=== PATIENT | female | born 1990 | race Caucasian/White ===

== ENCOUNTER 2017-06-02 21:03 | Emergency (ER) | payer BC, OTHER ==
[2017-06-02] MEDS ORDERED: SODIUM CHLORIDE 0.9% 1,000 ML IV STA (21:49)
[2017-06-02 22:11] LABS: Appearance,Urine Turbid (Clear); Bilirubin,Urine Negative (Negative); Blood,Urine Large (Negative); Color,Urine Dark Red; Glucose,Urine (UA) Trace (Negative); Ketones,Urine Negative (Negative); Leukocyte Esterase,Urine Large (Negative); Nitrite,Urine Negative (Negative); PH, Urine 6.5 (5.0-8.0); Protein,Urine 3+ (Negative); RBC,Urine >182 /hpf (0-5); Squamous Epithelial Cell,Urine 22 /hpf (0-4); Urobilinogen,Urine <2.0 mg/dL (<2.0); WBC,Urine >182 /hpf (0-5)
[2017-06-02 22:16] LABS: Specific Gravity,Urine >1.050 (1.001-1.035)
[2017-06-02 22:22] LABS: Basophils % (A) 0 %; Eosinophils # (A) 0.3 k/uL (0-0.7); Eosinophils % (A) 2 %; HCT 36.1 % (34.0-46.0); HGB 12.1 gm/dL (11.4-16.0); Lymphocytes # (A) 2.7 k/uL (1.0-4.8); Lymphocytes % (A) 20 %; MCHC 33.6 g/dL (31.0-37.0); MCV 89.2 fL (80.0-100.0); Mean Platelet Volume 7.1; Monocytes # (A) 0.5 k/uL (0-1.0); Monocytes % (A) 4 %; Neutrophils # (A) 9.7 k/uL (1.3-7.7); Neutrophils % (A) 73 %; Platelet Count 282 k/uL (150-450); RBC 4.04 m/uL (3.80-5.40); RDW 13.2 % (11.5-15.5); WBC 13.3 k/uL (3.8-10.6)
--- NOTE | 2017-06-02 22:28 | ED ---
General Adult HPI - General Chief complaint: Abdominal Pain Stated complaint: female urogenital Time Seen by Provider: 06/02/17 21:46 Source: patient, RN notes reviewed Mode of arrival: ambulatory Limitations: no limitations - History of Present Illness Initial comments: 27-year-old female presents with 1 day history of periumbilical abdominal pain. Patient denies any nausea or vomiting. Denies any change in her bowels. She does complain of hematuria and dysuria. Denies any vaginal discharge. She is currently on her menstrual cycle began approximately 4 days ago. Denies fever or chills. Denies cough or cold symptoms, denies chest pain or shortness of breath. Pain is constant in nature and localized to the umbilical region. - Related Data Home Medications Medication Instructions Recorded Confirmed Sertraline [Zoloft] 50 mg PO DAILY 06/02/17 06/02/17 Tri-Estarylla 1 tab PO DAILY 06/02/17 06/02/17 lamoTRIgine [LaMICtal Xr] 50 mg PO HS 06/02/17 06/02/17 Previous Rx's Medication Instructions Recorded Cephalexin [Keflex] 500 mg PO Q12HR #30 cap 06/02/17 Allergies Allergy/AdvReac Type Severity Reaction Status Date / Time Sulfa (Sulfonamide AdvReac Confusion Verified 06/02/17 22:33 Antibiotics) Review of Systems ROS Statement: Those systems with pertinent positive or pertinent negative responses have been documented in the HPI. ROS Other: All systems not noted in ROS Statement are negative. Past Medical History Past Medical History: No Reported History Additional Past Medical History / Comment(s): fractured bones chi History of Any Multi-Drug Resistant Organisms: None Reported Past Surgical History: No Surgical Hx Reported Past Psychological History: No Psychological Hx Reported Smoking Status: Never smoker Past Alcohol Use History: None Reported Past Drug Use History: None Reported General Exam Limitations: no limitations General appearance: alert, in no apparent distress Head exam: Present: atraumatic, normocephalic Eye exam: Present: normal appearance, PERRL ENT exam: Present: normal exam Neck exam: Present: normal inspection. Absent: tenderness, meningismus Respiratory exam: Present: normal lung sounds bilaterally. Absent: respiratory distress Cardiovascular Exam: Present: normal rhythm, tachycardia GI/Abdominal exam: Present: soft, distended, tenderness (Tender periumbilical) Extremities exam: Present: normal inspection, normal capillary refill. Absent: pedal edema Neurological exam: Present: alert, oriented X3, CN II-XII intact. Absent: motor sensory deficit Psychiatric exam: Present: normal affect, normal mood Skin exam: Present: warm, dry, intact. Absent: cyanosis, diaphoretic Course Vital Signs 06/02/17 06/02/17 21:14 23:29 Temperature 98.1 F 97.0 F L Pulse Rate 108 H 85 Respiratory 20 15 Rate Blood Pressure 130/65 124/78 O2 Sat by Pulse 99 100 Oximetry Medical Decision Making - Medical Decision Making 27-year-old female presenting with periumbilical pain. Patient does have some lower abdominal pain as well, laboratory studies are obtained, she has a white blood cell count 13.3, CMP within normal limits, urinalysis shows 180 to both RBCs and WBCs, urine culture pending. Patient has no flank pain. No fever, vital signs are stable. HCG is negative. KUB negative for obstruction or intraperitoneal free air, CT is obtained, negative for appendicitis, does show cystitis with wall thickening. Patient is given 1 g of IV Rocephin in the emergency department. She will be started on oral antibiotics. Return with worsening or changing symptoms. - Lab Data Result diagrams: 06/02/17 22:10 06/02/17 22:10 Lab Results 06/02/17 06/02/17 06/02/17 Range/Units 19:43 19:43 22:10 WBC (3.8-10.6) k/uL RBC (3.80-5.40) m/uL Hgb (11.4-16.0) gm/dL Hct (34.0-46.0) % MCV (80.0-100.0) fL MCH (25.0-35.0) pg MCHC (31.0-37.0) g/dL RDW (11.5-15.5) % Plt Count (150-450) k/uL Neutrophils % % Lymphocytes % % Monocytes % % Eosinophils % % Basophils % % Neutrophils # (1.3-7.7) k/uL Lymphocytes # (1.0-4.8) k/uL Monocytes # (0-1.0) k/uL Eosinophils # (0-0.7) k/uL Basophils # (0-0.2) k/uL Sodium 143 (137-145) mmol/L Potassium 4.2 (3.5-5.1) mmol/L Chloride 107 (98-107) mmol/L Carbon Dioxide 25 (22-30) mmol/L Anion Gap 11 mmol/L BUN 12 (7-17) mg/dL Creatinine 0.90 (0.52-1.04) mg/dL Est GFR (CKD-EPI)AfAm >90 (>60 ml/min/1.73 sqM) Est GFR (CKD-EPI)NonAf 90 (>60 ml/min/1.73 sqM) Glucose 91 (74-99) mg/dL Calcium 9.9 (8.4-10.2) mg/dL Total Bilirubin 0.2 (0.2-1.3) mg/dL AST 33 (14-36) U/L ALT 41 (9-52) U/L Alkaline Phosphatase 69 (38-126) U/L Total Protein 7.5 (6.3-8.2) g/dL Albumin 4.3 (3.5-5.0) g/dL Amylase 79 (30-110) U/L Lipase 74 (23-300) U/L Urine Color Dark Red Urine Appearance Turbid H (Clear) Urine pH 6.5 (5.0-8.0) Ur Specific [place] >1.050 H (1.001-1.035) Urine Protein 3+ H (Negative) Urine Glucose (UA) Trace H (Negative) Urine Ketones Negative (Negative) Urine Blood Large H (Negative) Urine Nitrite Negative (Negative) Urine Bilirubin Negative (Negative) Urine Urobilinogen <2.0 (<2.0) mg/dL Ur Leukocyte Esterase Large H (Negative) Urine RBC >182 H (0-5) /hpf Urine WBC >182 H (0-5) /hpf Urine WBC Clumps Many H (None) /hpf Ur Squamous Epith Cells 22 H (0-4) /hpf Urine HCG, Qual Not Detected (Not Detectd) 06/02/17 Range/Units 22:10 WBC 13.3 H (3.8-10.6) k/uL RBC 4.04 (3.80-5.40) m/uL Hgb 12.1 (11.4-16.0) gm/dL Hct 36.1 (34.0-46.0) % MCV 89.2 (80.0-100.0) fL MCH 30.0 (25.0-35.0) pg MCHC 33.6 (31.0-37.0) g/dL RDW 13.2 (11.5-15.5) % Plt Count 282 (150-450) k/uL Neutrophils % 73 % Lymphocytes % 20 % Monocytes % 4 % Eosinophils % 2 % Basophils % 0 % Neutrophils # 9.7 H (1.3-7.7) k/uL Lymphocytes # 2.7 (1.0-4.8) k/uL Monocytes # 0.5 (0-1.0) k/uL Eosinophils # 0.3 (0-0.7) k/uL Basophils # 0.0 (0-0.2) k/uL Sodium (137-145) mmol/L Potassium (3.5-5.1) mmol/L Chloride (98-107) mmol/L Carbon Dioxide (22-30) mmol/L Anion Gap mmol/L BUN (7-17) mg/dL Creatinine (0.52-1.04) mg/dL Est GFR (CKD-EPI)AfAm (>60 ml/min/1.73 sqM) Est GFR (CKD-EPI)NonAf (>60 ml/min/1.73 sqM) Glucose (74-99) mg/dL Calcium (8.4-10.2) mg/dL Total Bilirubin (0.2-1.3) mg/dL AST (14-36) U/L ALT (9-52) U/L Alkaline Phosphatase (38-126) U/L Total Protein (6.3-8.2) g/dL Albumin (3.5-5.0) g/dL Amylase (30-110) U/L Lipase (23-300) U/L Urine Color Urine Appearance (Clear) Urine pH (5.0-8.0) Ur Specific [place] (1.001-1.035) Urine Protein (Negative) Urine Glucose (UA) (Negative) Urine Ketones (Negative) Urine Blood (Negative) Urine Nitrite (Negative) Urine Bilirubin (Negative) Urine Urobilinogen (<2.0) mg/dL Ur Leukocyte Esterase (Negative) Urine RBC (0-5) /hpf Urine WBC (0-5) /hpf Urine WBC Clumps (None) /hpf Ur Squamous Epith Cells (0-4) /hpf Urine HCG, Qual (Not Detectd) Disposition Clinical Impression: Cystitis Disposition: HOME SELF-CARE Condition: Good Instructions: Urinary Tract Infection in Women (ED) Prescriptions: Cephalexin [Keflex] 500 mg PO Q12HR #30 cap Referrals: Mitchell Pink DO [Primary Care Provider] - 1-2 days Time of Disposition: 23:51
[2017-06-02 22:30] LABS: ALT 41 U/L (9-52); AST 33 U/L (14-36); Albumin 4.3 g/dL (3.5-5.0); Alkaline Phosphatase 69 U/L (38-126); Amylase 79 U/L (30-110); Anion Gap 11 mmol/L; Blood Urea Nitrogen 12 mg/dL (7-17); Calcium 9.9 mg/dL (8.4-10.2); Carbon Dioxide 25 mmol/L (22-30); Chloride 107 mmol/L (98-107); Glucose 91 mg/dL (74-99); Lipase 74 U/L (23-300); Potassium 4.2 mmol/L (3.5-5.1); Sodium 143 mmol/L (137-145); Total Bilirubin 0.2 mg/dL (0.2-1.3); Total Protein 7.5 g/dL (6.3-8.2)
[2017-06-02] MEDS ORDERED: RX INFO: IV CONTRAST WAS GIVEN 1 EACH MISC MISCELLANE PRN (22:43)
--- NOTE | 2017-06-02 23:11 | XR ---
EXAMINATION TYPE: XR KUB DATE OF EXAM: 06/02/2017 COMPARISON: 09/26/2014 HISTORY: Abdominal pain TECHNIQUE: 2 views FINDINGS: There is no sign of intestinal obstruction or pneumoperitoneum. Fecal pattern is normal. Coretta ng bases are clear. There are no pathologic calcifications over the kidneys. IMPRESSION: Nonacute abdomen. No change compared to old exam.
--- NOTE | 2017-06-02 23:44 | CT ---
EXAMINATION TYPE: CT abdomen pelvis w con DATE OF EXAM: 06/02/2017 COMPARISON: NONE HISTORY: Lower abd pain CT DLP: 406.60 mGycm Automated exposure control for dose reduction was used. TECHNIQUE: Helical acquisition of images was performed from the lung bases through the pelvis. CONTRAST: Performed without Oral Contrast and with IV Contrast, patient injected with 100 mL of Isovue 300. FINDINGS: Lung bases are clear. There is no pleural effusion. Heart size is normal. Liver spleen pancreas gallbladder appear normal. Bile ducts are not dilated. There is no adrenal mass. Kidneys show satisfactory contrast opacification. There is no hydronephrosi s. There is no retroperitoneal adenopathy. There is no ascites. Bladder distends smoothly. There is s uggestion of some bladder wall thickening. Uterus is anteverted. There is no free fluid in the pelvis . I see no intestinal wall thickening. There are no dilated loops. Appendix appears normal. I see no bony destructive process. Lumbar spine is intact. IMPRESSION: THERE IS URINARY BLADDER WALL THICKENING SUGGESTIVE OF NONSPECIFIC CYSTITIS. NORMAL APPENDIX.
[2017-06-02] MEDS ORDERED: cefTRIAXone IN SWFI 1,000 MG/10 ML SYRINGE IVP STA (23:47)
[2017-06-02 23:58] VITALS: BP 123/60; PULSE 89; RESP 16; TEMP 98.2
== END 2017-06-03 00:12 | disposition home or self-care (01) ==
LOC: EC 21:03
DX: N30.91 Cystitis, unspecified with hematuria (principal); R00.0 Tachycardia, unspecified; Z88.2 Allergy status to sulfonamides; Z79.899 Other long term (current) drug therapy
CPT/HCPCS: 99284 ×2; 96374 ×2; 36415; 80053; 82150; 83690; 85025; 81001; 81025; 87086; 87077; 87186; 74018; 74177; J0696; Q9967

== ENCOUNTER 2017-08-29 17:18 | Emergency (ER) | payer BC, OTHER ==
[2017-08-29 17:37] VITALS: BP 101/57; PULSE 95; RESP 18; TEMP 98.3
[2017-08-29 17:49] LABS: Appearance,Urine Turbid (Clear); Bacteria,Urine Rare /hpf; Bilirubin,Urine Negative (Negative); Blood,Urine Large (Negative); Color,Urine Red; Glucose,Urine (UA) Negative (Negative); Ketones,Urine Negative (Negative); Leukocyte Esterase,Urine Large (Negative); Nitrite,Urine Negative (Negative); Protein,Urine 3+ (Negative); RBC,Urine >182 /hpf (0-5); Squamous Epithelial Cell,Urine 76 /hpf (0-4); Urobilinogen,Urine <2.0 mg/dL (<2.0); WBC,Urine >182 /hpf (0-5)
[2017-08-29 17:50] LABS: Specific Gravity,Urine 1.026 (1.001-1.035)
--- NOTE | 2017-08-29 18:06 | ED ---
Female Urogenital HPI - General Chief complaint: Urogenital Stated complaint: POSS BLADDER INFECTION Time Seen by Provider: 08/29/17 17:26 Source: patient, RN notes reviewed Mode of arrival: ambulatory Limitations: no limitations - History of Present Illness Initial comments: 27-year-old female sent emergency Department chief complaint of pain with urination. Patient states started yesterday. Patient denies any flank pain, fever, chills. Patient states that she's had recurrent urinary tract infections. Patient admits to ALLERGY sulfa products. Patient denies any nausea, vomiting diarrhea constipation. Patient offers no other complaints. Denies any chance . - Related Data Home Medications Medication Instructions Recorded Confirmed Sertraline [Zoloft] 50 mg PO DAILY 06/02/17 06/02/17 Tri-Estarylla 1 tab PO DAILY 06/02/17 06/02/17 lamoTRIgine [LaMICtal Xr] 50 mg PO HS 06/02/17 06/02/17 Previous Rx's Medication Instructions Recorded Cephalexin [Keflex] 500 mg PO Q12HR #30 cap 06/02/17 Ciprofloxacin HCl [Cipro] 500 mg PO Q12HR #14 tablet 08/29/17 Allergies Allergy/AdvReac Type Severity Reaction Status Date / Time Sulfa (Sulfonamide AdvReac Confusion Verified 08/29/17 17:22 Antibiotics) Review of Systems ROS Statement: Those systems with pertinent positive or pertinent negative responses have been documented in the HPI. ROS Other: All systems not noted in ROS Statement are negative. Past Medical History Past Medical History: No Reported History Additional Past Medical History / Comment(s): fractured bones chi History of Any Multi-Drug Resistant Organisms: None Reported Past Surgical History: No Surgical Hx Reported Past Psychological History: No Psychological Hx Reported Smoking Status: Never smoker Past Alcohol Use History: None Reported Past Drug Use History: None Reported General Exam Limitations: no limitations General appearance: alert, in no apparent distress Neck exam: Present: normal inspection. Absent: tenderness, meningismus, lymphadenopathy Respiratory exam: Present: normal lung sounds bilaterally. Absent: respiratory distress, wheezes, rales, rhonchi, stridor Cardiovascular Exam: Present: regular rate, normal rhythm, normal heart sounds. Absent: systolic murmur, diastolic murmur, rubs, gallop, clicks GI/Abdominal exam: Present: soft, tenderness (Minimal suprapubic), normal bowel sounds. Absent: distended, guarding, rebound, rigid Back exam: Absent: CVA tenderness (R), CVA tenderness (L) Skin exam: Present: warm, dry, intact, normal color. Absent: rash Course Vital Signs 08/29/17 17:33 Temperature 98.3 F Pulse Rate 95 Respiratory 18 Rate Blood Pressure 101/57 O2 Sat by Pulse 99 Oximetry Medical Decision Making - Medical Decision Making 27-year-old female presented for dysuria. Patient is found to have a urinary tract infection. Patient has greater than 182 WBCs and RBCs. There is no concern for kidney stone as she has no flank pain and she is in no distress. Patient has no fever. Patient was started on ciprofloxacin and will have close follow-up. - Lab Data Lab Results 08/29/17 Range/Units 17:35 Urine Color Red Urine Appearance Turbid H (Clear) Urine pH 6.0 (5.0-8.0) Ur Specific [place] 1.026 (1.001-1.035) Urine Protein 3+ H (Negative) Urine Glucose (UA) Negative (Negative) Urine Ketones Negative (Negative) Urine Blood Large H (Negative) Urine Nitrite Negative (Negative) Urine Bilirubin Negative (Negative) Urine Urobilinogen <2.0 (<2.0) mg/dL Ur Leukocyte Esterase Large H (Negative) Urine RBC >182 H (0-5) /hpf Urine WBC >182 H (0-5) /hpf Ur Squamous Epith Cells 76 H (0-4) /hpf Urine Bacteria Rare H (None) /hpf Disposition Clinical Impression: Urinary tract infection Disposition: HOME SELF-CARE Condition: Stable Instructions: Urinary Tract Infection in Women (ED) Additional Instructions: Please return to the Emergency Department if symptoms worsen or any other concerns. Prescriptions: Ciprofloxacin HCl [Cipro] 500 mg PO Q12HR #14 tablet Is patient prescribed a controlled substance at d/c from ED?: No Referrals: Mitchell Pink DO [Primary Care Provider] - 1-2 days Time of Disposition: 18:06
== END 2017-08-29 18:15 | disposition home or self-care (01) ==
LOC: EC 17:18
DX: N39.0 Urinary tract infection, site not specified (principal); Z79.3 Long term (current) use of hormonal contraceptives; Z79.899 Other long term (current) drug therapy; Z88.2 Allergy status to sulfonamides
CPT/HCPCS: 81001; 87086; 99283

== ENCOUNTER 2018-01-25 16:57 | Emergency (ER) | payer BC, OTHER ==
--- NOTE | 2018-01-25 18:50 | ED ---
URI HPI - General Chief Complaint: Upper Respiratory Infection Stated Complaint: poss cold, headache Time Seen by Provider: 01/25/18 17:37 Source: patient Mode of arrival: ambulatory Limitations: no limitations - History of Present Illness Initial Comments: The well-appearing 27-year-old female with past medical history of previous head injury presenting today for chief complaint of sore throat, dull aching headache. Patient states that the past few days she has had sore throat that increases with swallowing. She also has noted a dull aching headache that comes and goes, she denies this being the worse headache or knife, denies photophobia, denies neck stiffness. Patient has noted some chills, denies cough , chest pain, sinus pressure, sputum production, shortness of breath, nausea, vomiting, diarrhea, dizziness, neck stiffness, body aches, visual changes, ataxia, speech changes, muscle weakness of the UE/LE, abdominal pain, diplopia , photophobia, ear pain, difficulty swallowing or breathing. Patient denies any neck swelling. Upon arrival pt appears well VS within normal limits. . - Related Data Home Medications Medication Instructions Recorded Confirmed Sertraline [Zoloft] 50 mg PO DAILY 06/02/17 08/29/17 Tri-Estarylla 1 tab PO DAILY 06/02/17 08/29/17 lamoTRIgine [LaMICtal Xr] 50 mg PO HS 06/02/17 08/29/17 Previous Rx's Medication Instructions Recorded Cephalexin [Keflex] 500 mg PO Q12HR #30 cap 06/02/17 Ciprofloxacin HCl [Cipro] 500 mg PO Q12HR #14 tablet 08/29/17 Ibuprofen 800 mg PO Q8H PRN 7 Days #21 tablet 01/25/18 Allergies Allergy/AdvReac Type Severity Reaction Status Date / Time Sulfa (Sulfonamide AdvReac Confusion Verified 01/25/18 17:20 Antibiotics) Review of Systems ROS Statement: Those systems with pertinent positive or pertinent negative responses have been documented in the HPI. ROS Other: All systems not noted in ROS Statement are negative. Constitutional: Denies: fever, chills, night sweats ENT: Reports: throat pain. Denies: ear pain, dental pain Respiratory: Denies: cough, dyspnea, wheezes, hemoptysis, stridor Cardiovascular: Denies: chest pain, palpitations, dyspnea on exertion Endocrine: Denies: fatigue Gastrointestinal: Denies: abdominal pain, nausea, vomiting, diarrhea, constipation, hematemesis, melena, hematochezia Genitourinary: Denies: urgency, dysuria, frequency, hematuria, discharge Skin: Denies: rash, lesions Neurological: Reports: headache. Denies: weakness, numbness, paresthesias, confusion, abnormal gait Past Medical History Past Medical History: No Reported History Additional Past Medical History / Comment(s): fractured bones chi History of Any Multi-Drug Resistant Organisms: None Reported Past Surgical History: No Surgical Hx Reported Past Psychological History: No Psychological Hx Reported Smoking Status: Never smoker Past Alcohol Use History: None Reported Past Drug Use History: None Reported General Exam - General Exam Comments Initial Comments: General: The patient is awake and alert, in no distress, and does not appear acutely ill. Eye: +3 pupils are equal, round and reactive to light, extra-ocular movements are intact. No nystagmus. There is normal conjunctiva bilaterally. No signs of icterus. No evidence of photophobia. Ears, nose, mouth and throat: There are moist mucous membranes and no oral lesions. Pharynx is mildly erythematous, there is mild tonsillar enlargement and erythema, no exudates or crypts. Uvula is midline. There is no evidence of peritonsillar abscess. No anterior cervical adenopathy. Tympanic membranes within normal limits bilaterally, no effusion, erythema retractions or bulging. External auditory canal exam normal bilaterally. Tenderness to palpation the mastoid. No posterior cervical lymph node the or epitrochlear adenopathy. Neck: The neck is supple, there is no tenderness or JVD. Negative Brudzinski's , negative Kernig. No nuchal rigidity. Cardiovascular: There is a regular rate and rhythm. No murmur, rub or gallop is appreciated. Respiratory: Lungs are clear to auscultation, respirations are non-labored, breath sounds are equal. No wheezes, stridor, rales, or rhonchi. Gastrointestinal: Soft, non-distended, non-tender abdomen without masses or organomegaly noted. There is no rebound or guarding present. No splenomegaly. No CVA tenderness. Bowel sounds are unremarkable. Musculoskeletal: Normal ROM, no tenderness. Strength 5/5. Sensation intact. Radial pulses equal bilaterally 2+. Neurological: A&O x 3. CN II-XII intact, There are no obvious motor or sensory deficits. Coordination appears grossly intact. Speech is normal. Skin: Skin is warm and dry and no rashes or lesions are noted. Psychiatric: Cooperative, appropriate mood & affect, normal judgment. Limitations: no limitations Course Vital Signs 01/25/18 17:16 Temperature 97.7 F Pulse Rate 97 Respiratory 18 Rate Blood Pressure 109/61 O2 Sat by Pulse 98 Oximetry Medical Decision Making - Medical Decision Making 27-year-old with complaints of sore throat 2 days. PT revealed mildly edematous oropharynx. Remainder of exam unremarkable. Lung sounds clear. No meningismus, photophobia. Patient appears well and nontoxic. Influenza and rapid strep testing negative. Patient was given 8 mg of by mouth for symptomatic treatment as well as tylenol for headache. Pt states that [place] has been improving since beginning of visit. VS stable, pt afebrile. No signs of symptoms concerning for systemic infection. At this time I feel pt has viral pharyngitis. Pt it to do salt water gargles, take ibuprofen/tylenol for pain mgmt. Return parameters discussed at length including worsening headache, nausea , vomiting, difficult to breathing or swallowing in addition to any worsening or concerning symptoms. Patient is agreeable with plan, states she is ready for discharge. Case was discussed with Dr. Maloney Who agrees with impression and plan. Patient was discharged in stable condition. - Lab Data Lab Results 01/25/18 01/25/18 Range/Units 17:49 17:49 Influenza Type A RNA Not Detected (Not Detectd) Influenza Type B (PCR) Not Detected (Not Detectd) Group A Strep Rapid Negative (Negative) Disposition Clinical Impression: Upper respiratory infection, Pharyngitis Disposition: HOME SELF-CARE Condition: Good Instructions: Pharyngitis (ED), Upper Respiratory Infection (ED) Additional Instructions: Please use medication as discussed. Please follow-up with family doctor in the next 2 days. Please return to emergency room if the symptoms increase or worsen or for any other concerns. Prescriptions: Ibuprofen 800 mg PO Q8H PRN 7 Days #21 tablet PRN Reason: Pain Is patient prescribed a controlled substance at d/c from ED?: No Referrals: Mitchell Pink DO [Primary Care Provider] - 1-2 days Time of Disposition: 18:51
[2018-01-25] MEDS ORDERED: ACETAMINOPHEN TAB 500 MG TAB PO STA (18:51)
[2018-01-25] MEDS ORDERED: DEXAMETHASONE 4 MG TAB PO STA (18:51)
[2018-01-25 19:14] VITALS: BP 109/80; PULSE 72; RESP 20; TEMP 97.9
== END 2018-01-25 19:13 | disposition home or self-care (01) ==
LOC: EC 16:57
DX: J02.9 Acute pharyngitis, unspecified (principal); R51 Headache; Z79.899 Other long term (current) drug therapy; Z79.3 Long term (current) use of hormonal contraceptives; Z88.2 Allergy status to sulfonamides
CPT/HCPCS: 87081; 87430; 87502; 99284; J8540

== ENCOUNTER 2018-03-04 22:13 | Emergency (ER) | payer BC, OTHER ==
[2018-03-04 22:17] VITALS: BP 118/78; PULSE 77; RESP 18; TEMP 97.6
[2018-03-04] MEDS ORDERED: FAMOTIDINE 20 MG TAB PO STA (22:45)
[2018-03-04] MEDS ORDERED: ONDANSETRON 4 MG TAB PO STA (22:45)
[2018-03-04] MEDS ORDERED: ONDANSETRON 4 MG ODT STARTER PACK 2 TAB BTL PO STA (22:45)
--- NOTE | 2018-03-04 22:50 | ED ---
Nausea/Vomiting/Diarrhea HPI - General Chief complaint: Nausea/Vomiting/Diarrhea Stated complaint: Nausea Time Seen by Provider: 03/04/18 22:28 Source: patient, RN notes reviewed, old records reviewed Mode of arrival: ambulatory Limitations: no limitations - History of Present Illness Initial comments: Patient is a 27-year-old female who presents raise times a day with chief complaint of nausea. Patient reports over the past 2 days she only has nausea in the evening. She states it goes away when she spells sleep. She denies chance . She went to her PCPs office and they checked a urinalysis and urine hCG. This is all negative. She's had no vomiting episodes. She denies any abdominal pain. She only complains of nausea. She was given a prescription for Zofran but cannot get this filled until tomorrow. - Related Data Home Medications Medication Instructions Recorded Confirmed Sertraline [Zoloft] 50 mg PO DAILY 06/02/17 03/04/18 lamoTRIgine [LaMICtal Xr] 50 mg PO HS 06/02/17 03/04/18 Control (Unknown) 1 tab PO DAILY 03/04/18 03/04/18 Previous Rx's Medication Instructions Recorded Ondansetron Odt [Zofran Odt] 4 mg PO Q8HR PRN #12 tab 03/04/18 Allergies Allergy/AdvReac Type Severity Reaction Status Date / Time Sulfa (Sulfonamide AdvReac Confusion Verified 03/04/18 22:38 Antibiotics) Review of Systems ROS Statement: Those systems with pertinent positive or pertinent negative responses have been documented in the HPI. ROS Other: All systems not noted in ROS Statement are negative. Past Medical History Past Medical History: No Reported History Additional Past Medical History / Comment(s): fractured bones chi History of Any Multi-Drug Resistant Organisms: None Reported Past Surgical History: No Surgical Hx Reported Past Psychological History: No Psychological Hx Reported Smoking Status: Never smoker Past Alcohol Use History: None Reported Past Drug Use History: None Reported General Exam - General Exam Comments Initial Comments: Alert and oriented 27-year-old male. No acute distress. Limitations: no limitations General appearance: alert, in no apparent distress Head exam: Present: atraumatic, normocephalic, normal inspection Eye exam: Present: normal appearance, PERRL, EOMI. Absent: scleral icterus, conjunctival injection, periorbital swelling ENT exam: Present: normal exam, mucous membranes moist Neck exam: Present: normal inspection. Absent: tenderness, meningismus, lymphadenopathy Respiratory exam: Present: normal lung sounds bilaterally. Absent: respiratory distress, wheezes, rales, rhonchi, stridor Cardiovascular Exam: Present: regular rate, normal rhythm, normal heart sounds. Absent: systolic murmur, diastolic murmur, rubs, gallop, clicks GI/Abdominal exam: Present: soft, normal bowel sounds. Absent: distended, tenderness, guarding, rebound, rigid Extremities exam: Present: normal inspection, full ROM, normal capillary refill. Absent: tenderness, pedal edema, joint swelling, calf tenderness Back exam: Present: normal inspection Neurological exam: Present: alert, oriented X3, CN II-XII intact Psychiatric exam: Present: normal affect, normal mood Course Vital Signs 03/04/18 22:14 Temperature 97.6 F Pulse Rate 77 Respiratory 18 Rate Blood Pressure 118/78 O2 Sat by Pulse 99 Oximetry Medical Decision Making - Medical Decision Making 27-year-old female presents emergency department today with chief complaint of nausea. Patient has no abdominal pain. She has no other complaints. No fevers or chills. Abdomen is soft and nontender. Vital signs are stable. Patient has had no actual vomiting episodes. Patient was seen by PCP, urine hCG and urinalysis is negative today. Patient requests a dose of Zofran and she is speaking prescription prescription tomorrow. I discussed the Patient a Zofran starter pack and one dose here as well as some Pepcid help settle her stomach. I discussed that she can follow-up with her primary care physician. Discussed if she has any actual abdominal pain fevers or chills or symptoms she can return for reevaluation. Disposition Clinical Impression: Nausea Disposition: HOME SELF-CARE Condition: Good Instructions: Acute Nausea and Vomiting (ED) Additional Instructions: Patient denies follow-up with primary care physician. Return to emergency department if any alarming signs or symptoms occur. Prescriptions: Ondansetron Odt [Zofran Odt] 4 mg PO Q8HR PRN #12 tab PRN Reason: Nausea Is patient prescribed a controlled substance at d/c from ED?: No Referrals: Mitchell Pink DO [Primary Care Provider] - 1-2 days Time of Disposition: 22:49
== END 2018-03-04 23:00 | disposition home or self-care (01) ==
LOC: EC 22:13
DX: R11.0 Nausea (principal); Z32.02 Encounter for pregnancy test, result negative; Z88.2 Allergy status to sulfonamides; Z79.3 Long term (current) use of hormonal contraceptives; Z79.899 Other long term (current) drug therapy
CPT/HCPCS: 99283; S0119

== ENCOUNTER 2018-05-11 23:39 | Emergency (ER) | payer BC, OTHER ==
[2018-05-12 03:19] LABS: Appearance,Urine Clear (Clear); Bacteria,Urine Occasional /hpf; Bilirubin,Urine Negative (Negative); Blood,Urine Negative (Negative); Color,Urine Light Yellow; Glucose,Urine (UA) Negative (Negative); Ketones,Urine Negative (Negative); Leukocyte Esterase,Urine Moderate (Negative); Mucus,Urine Rare /hpf; Nitrite,Urine Negative (Negative); PH, Urine 6.5 (5.0-8.0); Protein,Urine Negative (Negative); RBC,Urine 1 /hpf (0-5); Specific Gravity,Urine 1.013 (1.001-1.035); Squamous Epithelial Cell,Urine 2 /hpf (0-4); Urobilinogen,Urine <2.0 mg/dL (<2.0)
--- NOTE | 2018-05-12 03:30 | ED ---
General Adult HPI - General Chief complaint: Nausea/Vomiting/Diarrhea Stated complaint: Sore Throat/Tired Time Seen by Provider: 05/12/18 02:54 Source: patient Mode of arrival: ambulatory Limitations: no limitations - History of Present Illness Initial comments: Ya alvarenga pleasant 28-year-old female is brought to the ED today with her mother for evaluation of sore throat, subjective fever, chills and generalized body aches. Patient reports she's not been feeling well for couple of days. Patient reports she has had a sore throat and mild headache, nausea, decreased appetite, subjective fevers and chills, she reports that for the past day she's felt very cold and like she can't get warm. She was noted to be wearing 2 jackets upon arrival. - Related Data Home Medications Medication Instructions Recorded Confirmed Sertraline [Zoloft] 50 mg PO DAILY 06/02/17 03/04/18 lamoTRIgine [LaMICtal Xr] 50 mg PO HS 06/02/17 03/04/18 Control (Unknown) 1 tab PO DAILY 03/04/18 03/04/18 Previous Rx's Medication Instructions Recorded Ondansetron Odt [Zofran Odt] 4 mg PO Q8HR PRN #12 tab 03/04/18 Allergies Allergy/AdvReac Type Severity Reaction Status Date / Time Sulfa (Sulfonamide AdvReac Confusion Verified 05/12/18 00:19 Antibiotics) Review of Systems ROS Statement: Those systems with pertinent positive or pertinent negative responses have been documented in the HPI. ROS Other: All systems not noted in ROS Statement are negative. Past Medical History Past Medical History: No Reported History Additional Past Medical History / Comment(s): fractured bones chi History of Any Multi-Drug Resistant Organisms: None Reported Past Surgical History: No Surgical Hx Reported Past Psychological History: No Psychological Hx Reported Smoking Status: Never smoker Past Alcohol Use History: None Reported Past Drug Use History: None Reported General Exam - General Exam Comments Initial Comments: Physical Exam GENERAL: Patient is well-developed and well-nourished. Patient is febrile pierced mildly dehydrated HENT: Normocephalic, Atraumatic. Posterior oropharynx is injected EYES: PERRL, EOMI PULMONARY: Unlabored respirations. CARDIOVASCULAR: RRR ABDOMEN: Soft and nontender with normal bowel sounds. SKIN: Skin is clear with no lesions or rashes and otherwise unremarkable. Warm to touch, no rash : Deferred NEUROLOGIC: Patient is alert and oriented x3. Moving all extremities spontaneously MUSCULOSKELETAL: Normal extremities with adequate strength and full range of motion. No lower extremity swelling or edema. No calf tenderness. PSYCHIATRIC: Normal psychiatric evaluation. Limitations: no limitations Limitations: no limitations Course Vital Signs 05/12/18 05/12/18 05/12/18 00:15 04:07 05:54 Temperature 99.9 F H 101.7 F H 99.2 F Pulse Rate 90 71 Respiratory 16 18 Rate Blood Pressure 125/58 121/84 O2 Sat by Pulse 100 98 Oximetry Medical Decision Making - Medical Decision Making The patient was seen and evaluated history was obtained from patient and mother Patient with viral-like illness, however throat is injected with some mild exudate therefore strep swab was obtained Who swab as well as heterophile test were obtained, CBC and BMP were obtained patient was given Motrin for fever and IV fluids for rehydration Influenza heterophile and strep were negative I suspect the patient is suffering from viral pharyngitis. Patient was treated with Decadron. The importance of oral rehydration therapy was discussed with the patient, all questions pertaining care were answered patient was discharged home in stable condition. At the time of discharge patient's heart rate and fever had improved she reported feeling much better. - Lab Data Result diagrams: 05/12/18 03:49 05/12/18 03:49 Lab Results 05/12/18 05/12/18 05/12/18 Range/Units 03:05 03:05 03:49 WBC (3.8-10.6) k/uL RBC (3.80-5.40) m/uL Hgb (11.4-16.0) gm/dL Hct (34.0-46.0) % MCV (80.0-100.0) fL MCH (25.0-35.0) pg MCHC (31.0-37.0) g/dL RDW (11.5-15.5) % Plt Count (150-450) k/uL Neutrophils % % Lymphocytes % % Monocytes % % Eosinophils % % Basophils % % Neutrophils # (1.3-7.7) k/uL Lymphocytes # (1.0-4.8) k/uL Monocytes # (0-1.0) k/uL Eosinophils # (0-0.7) k/uL Basophils # (0-0.2) k/uL Sodium (137-145) mmol/L Potassium (3.5-5.1) mmol/L Chloride (98-107) mmol/L Carbon Dioxide (22-30) mmol/L Anion Gap mmol/L BUN (7-17) mg/dL Creatinine (0.52-1.04) mg/dL Est GFR (CKD-EPI)AfAm (>60 ml/min/1.73 sqM) Est GFR (CKD-EPI)NonAf (>60 ml/min/1.73 sqM) Glucose (74-99) mg/dL Calcium (8.4-10.2) mg/dL Total Bilirubin (0.2-1.3) mg/dL AST (14-36) U/L ALT (9-52) U/L Alkaline Phosphatase (38-126) U/L Total Protein (6.3-8.2) g/dL Albumin (3.5-5.0) g/dL Urine Color Light Yellow Urine Appearance Clear (Clear) Urine pH 6.5 (5.0-8.0) Ur Specific [place] 1.013 (1.001-1.035) Urine Protein Negative (Negative) Urine Glucose (UA) Negative (Negative) Urine Ketones Negative (Negative) Urine Blood Negative (Negative) Urine Nitrite Negative (Negative) Urine Bilirubin Negative (Negative) Urine Urobilinogen <2.0 (<2.0) mg/dL Ur Leukocyte Esterase Moderate H (Negative) Urine RBC 1 (0-5) /hpf Urine WBC 4 (0-5) /hpf Ur Squamous Epith Cells 2 (0-4) /hpf Urine Bacteria Occasional H (None) /hpf Urine Mucus Rare H (None) /hpf Urine HCG, Qual Not Detected (Not Detectd) Heterophile Antibody (Negative) Influenza Type A RNA Not Detected (Not Detectd) Influenza Type B (PCR) Not Detected (Not Detectd) Group A Strep Rapid (Negative) 05/12/18 05/12/18 05/12/18 Range/Units 03:49 03:49 03:49 WBC 13.1 H (3.8-10.6) k/uL RBC 4.04 (3.80-5.40) m/uL Hgb 11.8 (11.4-16.0) gm/dL Hct 35.6 (34.0-46.0) % MCV 88.2 (80.0-100.0) fL MCH 29.2 (25.0-35.0) pg MCHC 33.2 (31.0-37.0) g/dL RDW 13.7 (11.5-15.5) % Plt Count 248 (150-450) k/uL Neutrophils % 88 % Lymphocytes % 6 % Monocytes % 3 % Eosinophils % 2 % Basophils % 0 % Neutrophils # 11.5 H (1.3-7.7) k/uL Lymphocytes # 0.9 L (1.0-4.8) k/uL Monocytes # 0.3 (0-1.0) k/uL Eosinophils # 0.3 (0-0.7) k/uL Basophils # 0.0 (0-0.2) k/uL Sodium 138 (137-145) mmol/L Potassium 4.2 (3.5-5.1) mmol/L Chloride 106 (98-107) mmol/L Carbon Dioxide 21 L (22-30) mmol/L Anion Gap 11 mmol/L BUN 11 (7-17) mg/dL Creatinine 0.85 (0.52-1.04) mg/dL Est GFR (CKD-EPI)AfAm >90 (>60 ml/min/1.73 sqM) Est GFR (CKD-EPI)NonAf >90 (>60 ml/min/1.73 sqM) Glucose 116 H (74-99) mg/dL Calcium 9.4 (8.4-10.2) mg/dL Total Bilirubin 0.4 (0.2-1.3) mg/dL AST 22 (14-36) U/L ALT 20 (9-52) U/L Alkaline Phosphatase 69 (38-126) U/L Total Protein 7.7 (6.3-8.2) g/dL Albumin 4.2 (3.5-5.0) g/dL Urine Color Urine Appearance (Clear) Urine pH (5.0-8.0) Ur Specific [place] (1.001-1.035) Urine Protein (Negative) Urine Glucose (UA) (Negative) Urine Ketones (Negative) Urine Blood (Negative) Urine Nitrite (Negative) Urine Bilirubin (Negative) Urine Urobilinogen (<2.0) mg/dL Ur Leukocyte Esterase (Negative) Urine RBC (0-5) /hpf Urine WBC (0-5) /hpf Ur Squamous Epith Cells (0-4) /hpf Urine Bacteria (None) /hpf Urine Mucus (None) /hpf Urine HCG, Qual (Not Detectd) Heterophile Antibody Negative (Negative) Influenza Type A RNA (Not Detectd) Influenza Type B (PCR) (Not Detectd) Group A Strep Rapid (Negative) 05/12/18 Range/Units 03:49 WBC (3.8-10.6) k/uL RBC (3.80-5.40) m/uL Hgb (11.4-16.0) gm/dL Hct (34.0-46.0) % MCV (80.0-100.0) fL MCH (25.0-35.0) pg MCHC (31.0-37.0) g/dL RDW (11.5-15.5) % Plt Count (150-450) k/uL Neutrophils % % Lymphocytes % % Monocytes % % Eosinophils % % Basophils % % Neutrophils # (1.3-7.7) k/uL Lymphocytes # (1.0-4.8) k/uL Monocytes # (0-1.0) k/uL Eosinophils # (0-0.7) k/uL Basophils # (0-0.2) k/uL Sodium (137-145) mmol/L Potassium (3.5-5.1) mmol/L Chloride (98-107) mmol/L Carbon Dioxide (22-30) mmol/L Anion Gap mmol/L BUN (7-17) mg/dL Creatinine (0.52-1.04) mg/dL Est GFR (CKD-EPI)AfAm (>60 ml/min/1.73 sqM) Est GFR (CKD-EPI)NonAf (>60 ml/min/1.73 sqM) Glucose (74-99) mg/dL Calcium (8.4-10.2) mg/dL Total Bilirubin (0.2-1.3) mg/dL AST (14-36) U/L ALT (9-52) U/L Alkaline Phosphatase (38-126) U/L Total Protein (6.3-8.2) g/dL Albumin (3.5-5.0) g/dL Urine Color Urine Appearance (Clear) Urine pH (5.0-8.0) Ur Specific [place] (1.001-1.035) Urine Protein (Negative) Urine Glucose (UA) (Negative) Urine Ketones (Negative) Urine Blood (Negative) Urine Nitrite (Negative) Urine Bilirubin (Negative) Urine Urobilinogen (<2.0) mg/dL Ur Leukocyte Esterase (Negative) Urine RBC (0-5) /hpf Urine WBC (0-5) /hpf Ur Squamous Epith Cells (0-4) /hpf Urine Bacteria (None) /hpf Urine Mucus (None) /hpf Urine HCG, Qual (Not Detectd) Heterophile Antibody (Negative) Influenza Type A RNA (Not Detectd) Influenza Type B (PCR) (Not Detectd) Group A Strep Rapid Negative (Negative) Disposition Clinical Impression: Viral pharyngitis Disposition: HOME SELF-CARE Condition: Good Instructions (If sedation given, give patient instructions): Pharyngitis (ED) Is patient prescribed a controlled substance at d/c from ED?: No Referrals: Mitchell Pink DO [Primary Care Provider] - 1-2 days
[2018-05-12] MEDS ORDERED: SODIUM CHLORIDE 0.9% 1,000 ML IV ONE (03:41)
[2018-05-12] MEDS ORDERED: IBUPROFEN 600 MG TAB PO STA (03:41)
[2018-05-12 04:17] LABS: Basophils % (A) 0 %; Eosinophils # (A) 0.3 k/uL (0-0.7); Eosinophils % (A) 2 %; HCT 35.6 % (34.0-46.0); HGB 11.8 gm/dL (11.4-16.0); Lymphocytes # (A) 0.9 k/uL (1.0-4.8); Lymphocytes % (A) 6 %; MCH 29.2 pg (25.0-35.0); MCHC 33.2 g/dL (31.0-37.0); MCV 88.2 fL (80.0-100.0); Mean Platelet Volume 7.4; Monocytes # (A) 0.3 k/uL (0-1.0); Monocytes % (A) 3 %; Neutrophils # (A) 11.5 k/uL (1.3-7.7); Neutrophils % (A) 88 %; Platelet Count 248 k/uL (150-450); RBC 4.04 m/uL (3.80-5.40); RDW 13.7 % (11.5-15.5); WBC 13.1 k/uL (3.8-10.6)
[2018-05-12 04:27] LABS: ALT 20 U/L (9-52); AST 22 U/L (14-36); Albumin 4.2 g/dL (3.5-5.0); Alkaline Phosphatase 69 U/L (38-126); Anion Gap 11 mmol/L; Blood Urea Nitrogen 11 mg/dL (7-17); Calcium 9.4 mg/dL (8.4-10.2); Carbon Dioxide 21 mmol/L (22-30); Chloride 106 mmol/L (98-107); Glucose 116 mg/dL (74-99); Potassium 4.2 mmol/L (3.5-5.1); Sodium 138 mmol/L (137-145); Total Bilirubin 0.4 mg/dL (0.2-1.3); Total Protein 7.7 g/dL (6.3-8.2)
[2018-05-12] MEDS ORDERED: DEXAMETHASONE SOD PHOSPHATE 10 MG/ML 1 ML VIAL IV STA (05:09)
[2018-05-12 05:55] VITALS: BP 121/84; PULSE 71; RESP 18; TEMP 99.2
== END 2018-05-12 05:55 | disposition home or self-care (01) ==
LOC: EC 23:39
DX: J02.8 Acute pharyngitis due to other specified organisms (principal); R11.2 Nausea with vomiting, unspecified; R19.7 Diarrhea, unspecified; Z79.899 Other long term (current) drug therapy; Z79.3 Long term (current) use of hormonal contraceptives; Z88.2 Allergy status to sulfonamides
CPT/HCPCS: 36415; 80053; 81001; 81025; 85025; 86308; 87081; 87430; 87502; 96361; 96374; 99283

== ENCOUNTER 2018-05-22 01:27 | Emergency (ER) | payer BC, OTHER ==
[2018-05-22 01:44] VITALS: TEMP 97.9
[2018-05-22 02:46] LABS: Appearance,Urine Cloudy (Clear); Bacteria,Urine Many /hpf; Bilirubin,Urine Negative (Negative); Blood,Urine Negative (Negative); Color,Urine Yellow; Glucose,Urine (UA) Negative (Negative); Ketones,Urine Negative (Negative); Leukocyte Esterase,Urine Large (Negative); Mucus,Urine Many /hpf; Nitrite,Urine Negative (Negative); Protein,Urine 1+ (Negative); RBC,Urine 9 /hpf (0-5); Specific Gravity,Urine 1.029 (1.001-1.035); Squamous Epithelial Cell,Urine 41 /hpf (0-4); WBC,Urine 38 /hpf (0-5)
--- NOTE | 2018-05-22 04:08 | XR ---
EXAM: XR Abdomen, 2 Views CLINICAL HISTORY: Generalized abdominal pain. TECHNIQUE: Frontal supine views of the abdomen/pelvis. COMPARISON: 06/02/2017. FINDINGS: Gastrointestinal tract: Unremarkable. No dilation. Bones/joints: Unremarkable. IMPRESSION: Nonacute abdomen. No significant interval change from prior study.
[2018-05-22] MEDS ORDERED: ONDANSETRON 4 MG ODT STARTER PACK 2 TAB BTL PO STA (04:19)
--- NOTE | 2018-05-22 04:19 | ED ---
Abdominal Pain HPI - General Chief Complaint: Abdominal Pain Stated Complaint: Abdominal Pain Time Seen by Provider: 05/22/18 01:57 Source: patient Mode of arrival: ambulatory Limitations: no limitations - History of Present Illness Initial Comments: 28 year-old female patient presents to the emergency department today for evaluation of abdominal discomfort, nausea, and back pain. Patient states that symptoms started a few hours ago. Patient states she has been taking antibiotic for upper respiratory infection and believes this may be the cause of her symptoms. She denies any vomiting, constipation, or diarrhea. She denies any fevers or chills with this. States that she has been having some dysuria. Patient denies any recent rash, fever, chills, shortness breath, chest pain, numbness, tingling, dizziness, weakness, hematuria, headache, visual changes, or any other complaints. - Related Data Home Medications Medication Instructions Recorded Confirmed Sertraline [Zoloft] 50 mg PO DAILY 06/02/17 05/22/18 lamoTRIgine [LaMICtal Xr] 50 mg PO HS 06/02/17 05/22/18 Control (Unknown) 1 tab PO DAILY 03/04/18 05/22/18 Amoxicillin 12.5 ml PO 05/22/18 Previous Rx's Medication Instructions Recorded Ondansetron Odt [Zofran Odt] 4 mg PO Q8HR PRN #12 tab 03/04/18 Cephalexin [Keflex Susp] 10 ml PO Q6H #400 ml 05/22/18 Allergies Allergy/AdvReac Type Severity Reaction Status Date / Time Sulfa (Sulfonamide AdvReac Confusion Verified 05/12/18 00:19 Antibiotics) Review of Systems ROS Statement: Those systems with pertinent positive or pertinent negative responses have been documented in the HPI. ROS Other: All systems not noted in ROS Statement are negative. Past Medical History Past Medical History: No Reported History Additional Past Medical History / Comment(s): fractured bones chi History of Any Multi-Drug Resistant Organisms: None Reported Past Surgical History: No Surgical Hx Reported Past Psychological History: No Psychological Hx Reported Smoking Status: Never smoker Past Alcohol Use History: None Reported Past Drug Use History: None Reported General Exam Limitations: no limitations General appearance: alert, in no apparent distress, other (Social well- developed, well-nourished adult female patient in no acute distress. Vital signs upon presentation are temperature 97.9F, pulse 96, respirations 20, blood pressure 117/77, pulse ox 99% on room air.) Eye exam: Present: normal appearance, PERRL, EOMI. Absent: scleral icterus, conjunctival injection, periorbital swelling ENT exam: Present: normal exam, normal oropharynx, mucous membranes moist Respiratory exam: Present: normal lung sounds bilaterally. Absent: respiratory distress, wheezes, rales, rhonchi, stridor Cardiovascular Exam: Present: regular rate, normal rhythm, normal heart sounds. Absent: systolic murmur, diastolic murmur, rubs, gallop, clicks GI/Abdominal exam: Present: soft, normal bowel sounds. Absent: distended, tenderness, guarding, rebound, rigid Back exam: Present: normal inspection, CVA tenderness (R) (Mild), CVA tenderness (L) (Mild) Neurological exam: Present: alert, oriented X3, CN II-XII intact Psychiatric exam: Present: normal affect, normal mood Skin exam: Present: warm, dry, intact, normal color. Absent: rash Course Vital Signs 05/22/18 05/22/18 01:40 05:26 Temperature 97.9 F Pulse Rate 96 70 Respiratory 20 16 Rate Blood Pressure 117/77 102/45 O2 Sat by Pulse 99 Oximetry Medical Decision Making - Medical Decision Making 28 year-old female patient presented to the emergency department today for ev aluation of abdominal discomfort and back pain. Physical examination revealed a soft nontender abdomen. Mild CVA tenderness. KUB x-ray was obtained and showed no acute abnormalities. Urinalysis was obtained and did show evidence for urinary tract infection. She will be switched to Keflex. She is instructed to monitor for development of fevers or vomiting. She is instructed to return immediately should these develop. She is instructed to follow-up with her primary care physician for recheck in 1-2 days. Return parameters discussed in detail patient verbalizes understanding and agrees with this plan. - Lab Data Lab Results 05/22/18 05/22/18 Range/Units 02:25 02:25 Urine Color Yellow Urine Appearance Cloudy H (Clear) Urine pH 6.0 (5.0-8.0) Ur Specific [place] 1.029 (1.001-1.035) Urine Protein 1+ H (Negative) Urine Glucose (UA) Negative (Negative) Urine Ketones Negative (Negative) Urine Blood Negative (Negative) Urine Nitrite Negative (Negative) Urine Bilirubin Negative (Negative) Urine Urobilinogen 2.0 (<2.0) mg/dL Ur Leukocyte Esterase Large H (Negative) Urine RBC 9 H (0-5) /hpf Urine WBC 38 H (0-5) /hpf Ur Squamous Epith Cells 41 H (0-4) /hpf Urine Bacteria Many H (None) /hpf Urine Mucus Many H (None) /hpf Urine HCG, Qual Not Detected (Not Detectd) - Radiology Data Radiology results: report reviewed, image reviewed Two-view x-ray of the abdomen is obtained. Report was reviewed in its entirety. Impression by Dr. Middleton shows nonacute abdomen with no significant interval change from prior study. Disposition Clinical Impression: Abdominal pain Disposition: HOME SELF-CARE Condition: Good Instructions (If sedation given, give patient instructions): Abdominal Pain (ED) Additional Instructions: Follow-up through primary care physician for recheck in 1-2 days. Return to the emergency department immediately for any new, worsening, or concerning symptoms Prescriptions: Cephalexin [Keflex Susp] 10 ml PO Q6H #400 ml Is patient prescribed a controlled substance at d/c from ED?: No Referrals: Mitchell Pink DO [Primary Care Provider] - 1-2 days Time of Disposition: 04:19
[2018-05-22 05:28] VITALS: BP 102/45; PULSE 70; RESP 16
== END 2018-05-22 05:26 | disposition home or self-care (01) ==
LOC: EC 01:27
DX: N39.0 Urinary tract infection, site not specified (principal); R11.0 Nausea; Z79.3 Long term (current) use of hormonal contraceptives; Z79.899 Other long term (current) drug therapy; Z88.2 Allergy status to sulfonamides
CPT/HCPCS: 74018; 81001; 81025; 87086; 99284

== ENCOUNTER 2018-06-07 22:19 | Emergency (ER) | payer BC ==
[2018-06-07 22:30] VITALS: BP 108/63; PULSE 68; RESP 18; TEMP 97.4
[2018-06-07] MEDS ORDERED: FLUCONAZOLE 100 MG TAB PO ONE (23:39)
--- NOTE | 2018-06-07 23:40 | ED ---
Female Urogenital HPI - General Chief complaint: Urogenital Stated complaint: Female Time Seen by Provider: 06/07/18 23:04 Source: patient Mode of arrival: ambulatory Limitations: no limitations - History of Present Illness Initial comments: 28 year-old female patient presents to the emergency department today for evaluation of rash to the bilateral groin. Patient states she's noticed this starting a couple of days ago. Patient states she did recently on her period and feels like it may be irritation from her pad. States the rash does itch. She has tried applying vaseline to the area without relief. Patient does admit to being sexually active but denies concern for STDs. She denies any vaginal bleeding or discharge. Denies any chance of . She did recently complete to prescriptions of antibiotics for urinary tract infection. She denies any fever or chills with this. Denies rash to other parts of her body. Denies any street drugs or alcohol use. Patient denies any recent rash, shortness breath, chest pain, abdominal pain, nausea, vomiting, diarrhea, constipation, back pain, numbness, tingling, dizziness, weakness, hematuria, dysuria, urinary urgency, urinary frequency, headache, visual changes, or any other complaints. - Related Data Home Medications Medication Instructions Recorded Confirmed Sertraline [Zoloft] 50 mg PO DAILY 06/02/17 06/07/18 lamoTRIgine [LaMICtal Xr] 50 mg PO HS 06/02/17 06/07/18 Tri-Femynor 28 1 tab PO DAILY 06/07/18 06/07/18 Previous Rx's Medication Instructions Recorded Hydrocortisone Cream 1 applic TOPICAL TID PRN #15 gm 06/07/18 [Hydrocortisone 1% Cream] Allergies Allergy/AdvReac Type Severity Reaction Status Date / Time Sulfa (Sulfonamide AdvReac Confusion Verified 06/07/18 23:00 Antibiotics) Review of Systems ROS Statement: Those systems with pertinent positive or pertinent negative responses have been documented in the HPI. ROS Other: All systems not noted in ROS Statement are negative. Past Medical History Past Medical History: No Reported History Additional Past Medical History / Comment(s): fractured bones chi History of Any Multi-Drug Resistant Organisms: None Reported Past Surgical History: No Surgical Hx Reported Past Psychological History: No Psychological Hx Reported Smoking Status: Never smoker Past Alcohol Use History: None Reported Past Drug Use History: None Reported General Exam Limitations: no limitations General appearance: alert, in no apparent distress, other (Physical well-devel oped, well-nourished adult female patient in no acute distress. Vital signs upon presentation are temperature 97.4F, pulse 68, respirations 18, blood pressure 108/63, pulse ox 99% on room air.) Eye exam: Present: normal appearance, PERRL, EOMI. Absent: scleral icterus, conjunctival injection, periorbital swelling ENT exam: Present: normal exam, normal oropharynx, mucous membranes moist Respiratory exam: Present: normal lung sounds bilaterally. Absent: respiratory distress, wheezes, rales, rhonchi, stridor Cardiovascular Exam: Present: regular rate, normal rhythm, normal heart sounds. Absent: systolic murmur, diastolic murmur, rubs, gallop, clicks GI/Abdominal exam: Present: soft, normal bowel sounds. Absent: distended, tenderness, guarding, rebound, rigid External exam: Present: other (There is a flat erythematous rash noted to the bilateral groin, there is vulvar erythema. Lesions are non-petechial, nonvesicular. Nonpainful. There is no lymphadenopathy.) Neurological exam: Present: alert, oriented X3, CN II-XII intact Psychiatric exam: Present: normal affect, normal mood Skin exam: Present: warm, dry, intact, normal color Course Vital Signs 06/07/18 22:27 Temperature 97.4 F L Pulse Rate 68 Respiratory 18 Rate Blood Pressure 108/63 O2 Sat by Pulse 99 Oximetry Medical Decision Making - Medical Decision Making 28 year-old female patient presents to emergency department today for evaluation of rash to the bilateral groin. Physical examination did reveal a flat erythematous rash to the bilateral groin in April. Patient did recently complete 2 courses of antibiotics for urinary tract infection. We will treat for yeast infection with Diflucan. She'll be given a prescription for hydrocortisone cream for symptom relief. She is instructed to follow-up with her primary care physician for recheck in 1-2 days. Return parameters were discussed in detail. She verbalizes understanding and agrees with this plan. Disposition Clinical Impression: Vaginal candidiasis, Rash of genital area Disposition: HOME SELF-CARE Condition: Good Instructions (If sedation given, give patient instructions): Yeast Infection (ED) Additional Instructions: Use cream over rash as directed. Follow-up with your primary care physician for recheck of the area 1-2 days. Return to the emergency department immediately for any new, worsening, or concerning symptoms. Prescriptions: Hydrocortisone Cream [Hydrocortisone 1% Cream] 1 applic TOPICAL TID PRN #15 gm PRN Reason: Itching Is patient prescribed a controlled substance at d/c from ED?: No Referrals: Mitchell Pink DO [Primary Care Provider] - 1-2 days Time of Disposition: 23:40
== END 2018-06-07 23:59 | disposition home or self-care (01) ==
LOC: EC 22:19
DX: B37.3 Candidiasis of vulva and vagina (principal); Z88.2 Allergy status to sulfonamides; Z79.3 Long term (current) use of hormonal contraceptives; Z79.899 Other long term (current) drug therapy; Z87.440 Personal history of urinary (tract) infections
CPT/HCPCS: 99282

== ENCOUNTER → 2018-06-14 | Outpatient (CLI) | payer BC ==
--- NOTE | 2018-06-14 16:00 | US ---
EXAMINATION TYPE: US thyroid st tissue head/neck DATE OF EXAM: 06/14/2018 COMPARISON: NONE CLINICAL HISTORY: E04.9 nontoxic Goiter. Goiter GLAND SIZE: Right Lobe: 4.3 x 1.2 x 1.6 cm Overall Parenchyma: homogenous Left Lobe: 3.5 x 1.4 x 1.4 cm Overall Parenchyma: homogeneous Isthmus Thickness: 0.2 cm NODULES RIGHT: # of nodules measured on right: 0 LEFT: # of nodules measured on left: 0 ISTHMUS: # of nodules measured in the isthmus: 0 Bilateral neck scanned, no evidence of lymphadenopathy. Thyroid echotexture is homogenous and symmetric IMPRESSION: Thyroid size as described.
== END | disposition home or self-care (01) ==
LOC: RADUSWWP 15:29
PROVIDERS: ATTEND Family Medicine
DX: E04.9 Nontoxic goiter, unspecified (principal)
CPT/HCPCS: 76536

== ENCOUNTER 2018-06-27 00:33 | Emergency (ER) | payer BC ==
[2018-06-27 00:42] VITALS: BP 115/71; PULSE 68; RESP 20; TEMP 98.4
[2018-06-27 01:18] LABS: Appearance,Urine Turbid (Clear); Bacteria,Urine Moderate /hpf; Bilirubin,Urine Negative (Negative); Blood,Urine Negative (Negative); Color,Urine Yellow; Glucose,Urine (UA) Negative (Negative); Ketones,Urine Negative (Negative); Leukocyte Esterase,Urine Large (Negative); Mucus,Urine Many /hpf; Nitrite,Urine Negative (Negative); PH, Urine 5.5 (5.0-8.0); Protein,Urine 1+ (Negative); RBC,Urine 5 /hpf (0-5); Specific Gravity,Urine 1.034 (1.001-1.035); Squamous Epithelial Cell,Urine 17 /hpf (0-4); WBC,Urine 62 /hpf (0-5)
--- NOTE | 2018-06-27 02:07 | ED ---
General Adult HPI - General Source: patient, family, RN notes reviewed Mode of arrival: ambulatory Limitations: no limitations <Neil Dumont P - Last Filed: 06/27/18 02:02> <Lorena Nice P - Last Filed: 06/27/18 21:26> - General Chief complaint: Abdominal Pain Stated complaint: Abdominal Pain Time Seen by Provider: 06/27/18 00:48 - History of Present Illness Initial comments: 28 year old female without any significant past medical history presents to the emergency department for a chief complaint of lower abdominal pain and urinary frequency. Patient states this has been ongoing for the past several days. States there is some dysuria with urination as well. Denies fevers or chills. Denies upper abdominal pain. Does admit to mild nausea, denies any vomiting. Denies any back pain.Patient has no other complaints at this time including shortness of breath, chest pain, headache, or visual changes. (Neil Dumont) - Related Data Home Medications Medication Instructions Recorded Confirmed Sertraline [Zoloft] 50 mg PO DAILY 06/02/17 06/07/18 lamoTRIgine [LaMICtal Xr] 50 mg PO HS 06/02/17 06/07/18 Tri-Femynor 28 1 tab PO DAILY 06/07/18 06/07/18 Previous Rx's Medication Instructions Recorded Hydrocortisone Cream 1 applic TOPICAL TID PRN #15 gm 06/07/18 [Hydrocortisone 1% Cream] Cephalexin [Keflex] 500 mg PO Q12HR #7 cap 06/27/18 Allergies Allergy/AdvReac Type Severity Reaction Status Date / Time Sulfa (Sulfonamide AdvReac Confusion Verified 06/27/18 00:42 Antibiotics) Review of Systems ROS Other: All systems not noted in ROS Statement are negative. <Neil Dumont P - Last Filed: 06/27/18 02:02> ROS Other: All systems not noted in ROS Statement are negative. <Lorena Nice P - Last Filed: 06/27/18 21:26> ROS Statement: Those systems with pertinent positive or pertinent negative responses have been documented in the HPI. Past Medical History Past Medical History: No Reported History Additional Past Medical History / Comment(s): fractured bones chi History of Any Multi-Drug Resistant Organisms: None Reported Past Surgical History: No Surgical Hx Reported Past Psychological History: No Psychological Hx Reported Smoking Status: Never smoker Past Alcohol Use History: None Reported Past Drug Use History: None Reported <Neil Dumont P - Last Filed: 06/27/18 02:02> General Exam Limitations: no limitations General appearance: alert, in no apparent distress Head exam: Present: atraumatic, normocephalic, normal inspection Eye exam: Present: normal appearance, PERRL, EOMI. Absent: scleral icterus, conjunctival injection, periorbital swelling ENT exam: Present: normal exam, mucous membranes moist Neck exam: Present: normal inspection, full ROM. Absent: tenderness, meningismus, lymphadenopathy Respiratory exam: Present: normal lung sounds bilaterally. Absent: respiratory distress, wheezes, rales, rhonchi, stridor Cardiovascular Exam: Present: regular rate, normal rhythm, normal heart sounds. Absent: systolic murmur, diastolic murmur, rubs, gallop, clicks GI/Abdominal exam: Present: soft, tenderness (Mild tenderness noted in the suprapubic area, no tenderness noted elsewhere. No guarding), normal bowel sounds. Absent: distended, guarding, rebound, rigid Neurological exam: Present: alert, oriented X3, CN II-XII intact Psychiatric exam: Present: normal affect, normal mood <Neil Dumont P - Last Filed: 06/27/18 02:02> Course Vital Signs 06/27/18 00:37 Temperature 98.4 F Pulse Rate 68 Respiratory 20 Rate Blood Pressure 115/71 O2 Sat by Pulse 97 Oximetry Medical Decision Making <Neil Dumont P - Last Filed: 06/27/18 02:02> <Lorena Nice P - Last Filed: 06/27/18 21:26> - Medical Decision Making 28 year old female without any significant past medical history presents to the emergency department for a chief complaint of lower abdominal pain, urinary frequency and dysuria for the past couple days. Patient also admits to nausea starting in the past hour. Denies any vomiting. On exam patient is some mild suprapubic tenderness without guarding, exam otherwise unremarkable. Vitals are stable, patient is afebrile with a heart rate of 68. Urinalysis does show large leukocyte esterase with 62 white blood cells. Moderate bacteria. HCG is negative. Patient will be given Bactrim. She will follow up with primary care. She'll return if she has any worsening symptoms. (Neil Dumont) I was available for consultation in the emergency department. The history and physical exam were done by the midlevel provider. I was consulted for this patient's care. I reviewed the case with the midlevel provider and based on their presentation of the patient, I agree with the assessment, medical decision making and plan of care as documented. (Lorena Nice) - Lab Data Lab Results 06/27/18 06/27/18 Range/Units 00:30 01:00 Urine Color Yellow Urine Appearance Turbid H (Clear) Urine pH 5.5 (5.0-8.0) Ur Specific [place] 1.034 (1.001-1.035) Urine Protein 1+ H (Negative) Urine Glucose (UA) Negative (Negative) Urine Ketones Negative (Negative) Urine Blood Negative (Negative) Urine Nitrite Negative (Negative) Urine Bilirubin Negative (Negative) Urine Urobilinogen 2.0 (<2.0) mg/dL Ur Leukocyte Esterase Large H (Negative) Urine RBC 5 (0-5) /hpf Urine WBC 62 H (0-5) /hpf Ur Squamous Epith Cells 17 H (0-4) /hpf Urine Bacteria Moderate H (None) /hpf Urine Mucus Many H (None) /hpf Urine HCG, Qual Not Detected (Not Detectd) Disposition Is patient prescribed a controlled substance at d/c from ED?: No Time of Disposition: 02:05 <Neil Dumont P - Last Filed: 06/27/18 02:02> <Lorena Nice - Last Filed: 06/27/18 21:26> Clinical Impression: Urinary tract infection Disposition: HOME SELF-CARE Condition: Good Instructions (If sedation given, give patient instructions): Urinary Tract Infection in Women (ED) Additional Instructions: Please take antibiotic as directed. Please follow-up with primary care in 1-2 days. Please return here to the emergency department if they are having any worsening symptoms. Prescriptions: Cephalexin [Keflex] 500 mg PO Q12HR #7 cap Referrals: Mitchell Pink DO [Primary Care Provider] - 1-2 days
[2018-06-27] MEDS ORDERED: CEPHALEXIN 500MG STARTER PACK 4 CAP BTL PO STA (02:09)
== END 2018-06-27 02:23 | disposition home or self-care (01) ==
LOC: EC 00:33
DX: N39.0 Urinary tract infection, site not specified (principal); Z79.899 Other long term (current) drug therapy; Z88.2 Allergy status to sulfonamides
CPT/HCPCS: 81001; 81025; 87086; 99284

== ENCOUNTER 2018-07-28 21:51 | Emergency (ER) | payer BC ==
[2018-07-28 21:56] VITALS: TEMP 98
[2018-07-28] MEDS ORDERED: LIDOCAINE 5% PATCH TOPICAL STA (23:28)
--- NOTE | 2018-07-28 23:30 | ED ---
General Adult HPI - General Chief complaint: Back Pain/Injury Stated complaint: back pain Time Seen by Provider: 07/28/18 22:06 Source: patient Mode of arrival: ambulatory Limitations: no limitations - History of Present Illness Initial comments: Dictation was produced using [employer] dictation software. please excuse any grammatical, word or spelling errors. Chief Complaint: She'll female no significant past medical history presents with back pain. History of Present Illness: Patient is a 28 year old female presents with back pain. She states had this back pain today. She reports that her symptoms are worse when she leans back on a chair. Patient reports having had this pain intimately for the last 3-4 days. She came to the emergency department today for a checkup. No cough, no shortness of breath. It is not changed with any deep inspiration. Denies any trauma. The ROS documented in this emergency department record has been reviewed and confirmed by me. Those systems with pertinent positive or negative responses have been documented in the HPI. All other systems are other negative and/or noncontributory. PHYSICAL EXAM: General Impression: Alert and oriented x3, not in acute distress HEENT: Normocephalic atraumatic, extra-ocular movements intact, pupils equal and reactive to light bilaterally, mucous membranes moist. Cardiovascular: Heart regular rate and rhythm, S1&S2 audible, no murmurs, rubs or gallops Chest: Lungs clear to auscultation bilaterally, no rhonchi, no wheeze, no rales Abdomen: Bowel sounds present, abdomen soft, non-tender, non-distended, no organomegaly Musculoskeletal: Pulses present and equal in all extremities, no peripheral edema, tenderness to palpation over the paraspinal musculature of the upper thoracic spine. Motor: no focal deficits noted Neurological: CN II-XII grossly intact, no focal motor or sensory deficits noted Skin: Intact with no visualized rashes Psych: Normal affect and mood ED course: 28-year-old female presents with clinical presentation of musculoskeletal strain to the upper back. As upon arrival are within acceptable limits. Two-view chest x-ray is unremarkable. Lidocaine patch was applied to set symptomatically area. Patient reports mild improvement of symptoms. Patient told to follow up with primary care physician upon discharge. Return parameters discussed. Patient to be discharge. - Related Data Home Medications Medication Instructions Recorded Confirmed Sertraline [Zoloft] 50 mg PO DAILY 06/02/17 07/28/18 lamoTRIgine [LaMICtal Xr] 50 mg PO HS 06/02/17 07/28/18 Tri-Femynor 28 1 tab PO DAILY 06/07/18 07/28/18 Allergies Allergy/AdvReac Type Severity Reaction Status Date / Time Sulfa (Sulfonamide AdvReac Confusion Verified 07/28/18 22:09 Antibiotics) Review of Systems ROS Statement: Those systems with pertinent positive or pertinent negative responses have been documented in the HPI. ROS Other: All systems not noted in ROS Statement are negative. Past Medical History Past Medical History: No Reported History Additional Past Medical History / Comment(s): fractured bones chi History of Any Multi-Drug Resistant Organisms: None Reported Past Surgical History: No Surgical Hx Reported Past Psychological History: No Psychological Hx Reported Smoking Status: Never smoker Past Alcohol Use History: None Reported Past Drug Use History: None Reported General Exam Limitations: no limitations Course Vital Signs 07/28/18 21:52 Temperature 98.0 F Pulse Rate 70 Respiratory 18 Rate Blood Pressure 111/72 O2 Sat by Pulse 99 Oximetry Disposition Clinical Impression: Mechanical back pain Disposition: HOME SELF-CARE Condition: Good Instructions (If sedation given, give patient instructions): Back Pain (ED) Is patient prescribed a controlled substance at d/c from ED?: No Referrals: Mitchell Pink DO [Primary Care Provider] - 1-2 days Time of Disposition: 23:57
--- NOTE | 2018-07-28 23:48 | XR ---
EXAM: XR Chest, 2 Views CLINICAL HISTORY: Pain TECHNIQUE: Frontal and lateral views of the chest. COMPARISON: No relevant prior studies available. FINDINGS: Lungs: Unremarkable. No consolidation. Pleural space: Unremarkable. No pneumothorax. Heart: Unremarkable. No cardiomegaly. Mediastinum: Unremarkable. Bones/joints: Unremarkable. IMPRESSION: Normal chest x-rays.
[2018-07-29 00:14] VITALS: BP 116/82; PULSE 60; RESP 15
== END 2018-07-29 00:12 | disposition home or self-care (01) ==
LOC: EC 21:51
DX: M54.6 Pain in thoracic spine (principal); Z79.3 Long term (current) use of hormonal contraceptives; Z79.899 Other long term (current) drug therapy; Z88.2 Allergy status to sulfonamides
CPT/HCPCS: 71046; 99283

== ENCOUNTER 2018-07-30 18:07 | Emergency (ER) | payer BC ==
[2018-07-30 18:28] VITALS: TEMP 98.2
--- NOTE | 2018-07-30 19:28 | ED ---
General Adult HPI - General Chief complaint: ENT Stated complaint: Sore Throat, Nauseated Time Seen by Provider: 07/30/18 18:33 Source: patient, family, RN notes reviewed Mode of arrival: ambulatory Limitations: physical limitation - History of Present Illness Initial comments: 28 year old female presents to the emergency department for chief sore throat. Patient states her sore throat started today. Patient states it is painful to swallow however denies any difficulty swallowing. States she is also nauseous but chronically is nauseated and take Zofran for this. Denies any abdominal pain or vomiting. Denies any diarrhea. Patient denies any fevers or chills. No cough or congestion.Patient has no other complaints at this time including shortness of breath, chest pain, abdominal pain, vomiting, headache, or visual changes. - Related Data Home Medications Medication Instructions Recorded Confirmed Sertraline [Zoloft] 50 mg PO DAILY 06/02/17 07/28/18 lamoTRIgine [LaMICtal Xr] 50 mg PO HS 06/02/17 07/28/18 Tri-Femynor 28 1 tab PO DAILY 06/07/18 07/28/18 Allergies Allergy/AdvReac Type Severity Reaction Status Date / Time Sulfa (Sulfonamide AdvReac Confusion Verified 07/30/18 18:28 Antibiotics) Review of Systems ROS Statement: Those systems with pertinent positive or pertinent negative responses have been documented in the HPI. ROS Other: All systems not noted in ROS Statement are negative. Past Medical History Past Medical History: No Reported History Additional Past Medical History / Comment(s): fractured bones chi History of Any Multi-Drug Resistant Organisms: None Reported Past Surgical History: No Surgical Hx Reported Past Psychological History: No Psychological Hx Reported Smoking Status: Never smoker Past Alcohol Use History: None Reported Past Drug Use History: None Reported General Exam Limitations: physical limitation General appearance: alert, in no apparent distress Head exam: Present: atraumatic, normocephalic, normal inspection Eye exam: Present: normal appearance, PERRL, EOMI. Absent: scleral icterus, conjunctival injection, periorbital swelling ENT exam: Present: normal exam, normal oropharynx (Uvula midline, no tonsillar exudates noted bilaterally), mucous membranes moist, TM's normal bilaterally, normal external ear exam Neck exam: Present: normal inspection, full ROM. Absent: tenderness, meningismus, lymphadenopathy Respiratory exam: Present: normal lung sounds bilaterally. Absent: respiratory distress, wheezes, rales, rhonchi, stridor Cardiovascular Exam: Present: regular rate, normal rhythm, normal heart sounds. Absent: systolic murmur, diastolic murmur, rubs, gallop, clicks Course Vital Signs 07/30/18 18:25 Temperature 98.2 F Pulse Rate 83 Respiratory 18 Rate Blood Pressure 113/77 O2 Sat by Pulse 97 Oximetry Medical Decision Making - Medical Decision Making 28-year-old female presents for sore throat times one day. No fevers or chills. No difficulty swallowing. On exam patient has a patent oropharynx without any evidence of abscess. Uvula is midline. No tonsillar exudates. Strep was negative. Culture will be sent. Patient agrees a viral pharyngitis. Discussed Motrin and Tylenol for pain and following up with primary care in 1-2 days. - Lab Data Lab Results 07/30/18 Range/Units 18:50 Group A Strep Rapid Negative (Negative) Disposition Clinical Impression: Pharyngitis Disposition: HOME SELF-CARE Condition: Good Instructions (If sedation given, give patient instructions): Pharyngitis (ED) Additional Instructions: Please take Motrin and Tylenol for pain. If you're having any worsening symptoms or difficulty swallowing return here to the emergency department. Is patient prescribed a controlled substance at d/c from ED?: No Referrals: Mitchell Pink DO [Primary Care Provider] - 1-2 days Time of Disposition: 19:26
[2018-07-30 20:28] VITALS: BP 107/55; PULSE 76; RESP 16
== END 2018-07-30 20:18 | disposition home or self-care (01) ==
LOC: EC 18:07
DX: J02.8 Acute pharyngitis due to other specified organisms (principal); Z88.2 Allergy status to sulfonamides; Z79.3 Long term (current) use of hormonal contraceptives; Z79.899 Other long term (current) drug therapy
CPT/HCPCS: 87081; 87430; 99283

== ENCOUNTER 2018-08-15 10:12 | Emergency (ER) | payer BC ==
[2018-08-15 10:19] VITALS: BP 121/88; PULSE 81; RESP 18; TEMP 98.1
--- NOTE | 2018-08-15 10:32 | ED ---
General Adult HPI - General Chief complaint: ENT Stated complaint: sore throat Time Seen by Provider: 08/15/18 10:21 Source: patient, RN notes reviewed Mode of arrival: ambulatory Limitations: no limitations - History of Present Illness Initial comments: 28-year-old female presents to the emergency department for chief commands sore throat times one day. Patient states that she is currently living with her friend and her friend keeps the urine. Patient states she believes this is causing her throat to be sore. Patient states she is trying to stay warm despite having the air conditioner on but it is still causing her sore throat. Denies any fevers or chills. Denies any difficulty swallowing solids or liquids. Denies any difficulty breathing. Denies any sensation of swelling in the throat. Denies any congestion or cough. Patient has not tried Motrin or Tylenol.Patient has no other complaints at this time including shortness of breath, chest pain, abdominal pain, nausea or vomiting, headache, or visual changes. - Related Data Home Medications Medication Instructions Recorded Confirmed Sertraline [Zoloft] 50 mg PO DAILY 06/02/17 07/28/18 lamoTRIgine [LaMICtal Xr] 50 mg PO HS 06/02/17 07/28/18 Tri-Femynor 28 1 tab PO DAILY 06/07/18 07/28/18 Allergies Allergy/AdvReac Type Severity Reaction Status Date / Time Sulfa (Sulfonamide AdvReac Confusion Verified 08/15/18 10:19 Antibiotics) Review of Systems ROS Statement: Those systems with pertinent positive or pertinent negative responses have been documented in the HPI. ROS Other: All systems not noted in ROS Statement are negative. Past Medical History Past Medical History: No Reported History Additional Past Medical History / Comment(s): fractured bones chi History of Any Multi-Drug Resistant Organisms: None Reported Past Surgical History: No Surgical Hx Reported Past Psychological History: No Psychological Hx Reported Smoking Status: Never smoker Past Alcohol Use History: None Reported Past Drug Use History: None Reported General Exam Limitations: no limitations General appearance: alert, in no apparent distress Head exam: Present: atraumatic, normocephalic, normal inspection Eye exam: Present: normal appearance, PERRL, EOMI. Absent: scleral icterus, conjunctival injection, periorbital swelling ENT exam: Present: normal exam, normal oropharynx (uvula midline, non erythematous, no tonsillar exudates noted bilaterally), mucous membranes moist, TM's normal bilaterally, normal external ear exam Neck exam: Present: normal inspection, full ROM. Absent: tenderness, meningismus, lymphadenopathy Respiratory exam: Present: normal lung sounds bilaterally. Absent: respiratory distress, wheezes, rales, rhonchi, stridor Cardiovascular Exam: Present: regular rate, normal rhythm, normal heart sounds. Absent: systolic murmur, diastolic murmur, rubs, gallop, clicks Neurological exam: Present: alert, oriented X3, CN II-XII intact Psychiatric exam: Present: normal affect, normal mood Course Vital Signs 08/15/18 10:16 Temperature 98.1 F Pulse Rate 81 Respiratory 18 Rate Blood Pressure 121/88 O2 Sat by Pulse 98 Oximetry Medical Decision Making - Medical Decision Making 28-year-old female presents for sore throat times one day. Exam is unremarkable. Oropharynx is patent, no tonsillar exudates noted bilaterally. Uvula midline. Patient afebrile. Strep is negative. Patient states she thinks she has a sore throat because the AC is on. Discussed Motrin and Tylenol for pain. Discussed using humidifier. Discussed following up with primary care in 1-2 days and return if she has any worsening symptoms. - Lab Data Lab Results 08/15/18 Range/Units 10:27 Group A Strep Rapid Negative (Negative) Disposition Clinical Impression: Pharyngitis Disposition: HOME SELF-CARE Condition: Good Instructions (If sedation given, give patient instructions): Strep Throat (ED) Additional Instructions: Please take Motrin and Tylenol for pain. Please try to use humidifier. Follow up with primary care in 1-2 days. Return here to the emergency department if you have any worsening symptoms. Is patient prescribed a controlled substance at d/c from ED?: No Referrals: Mitchell Pink DO [Primary Care Provider] - 1-2 days Time of Disposition: 10:55
[2018-08-15] MEDS ORDERED: ACETAMINOPHEN TAB 325 MG TAB PO STA (10:57)
== END 2018-08-15 11:17 | disposition home or self-care (01) ==
LOC: EC 10:12
DX: J02.9 Acute pharyngitis, unspecified (principal); Z79.3 Long term (current) use of hormonal contraceptives; Z79.899 Other long term (current) drug therapy; Z88.2 Allergy status to sulfonamides
CPT/HCPCS: 87081; 87430; 99283

== ENCOUNTER 2018-09-22 04:19 | Emergency (ER) | payer BC ==
[2018-09-22 05:00] VITALS: TEMP 98.4
--- NOTE | 2018-09-22 05:25 | ED ---
Female Urogenital HPI - General Chief complaint: Urogenital Stated complaint: female Time Seen by Provider: 09/22/18 05:15 Source: patient Mode of arrival: ambulatory - History of Present Illness Initial comments: Patient is 28-year-old woman who thought that she may be seeing blood in her urine. She is concerned as she states her period had stopped within the last week. MD Complaint: other (Possible hematuria) -: hour(s) Severity scale (1-10): 0 Improves with: none Worsens with: none Patient : No - Related Data Home Medications Medication Instructions Recorded Confirmed Sertraline [Zoloft] 50 mg PO DAILY 06/02/17 07/28/18 lamoTRIgine [LaMICtal Xr] 50 mg PO HS 06/02/17 07/28/18 Tri-Femynor 28 1 tab PO DAILY 06/07/18 07/28/18 Previous Rx's Medication Instructions Recorded Nitrofurantoin Monohyd/M-Cryst 100 mg PO Q12HR #6 cap 09/22/18 [Macrobid] Allergies Allergy/AdvReac Type Severity Reaction Status Date / Time Sulfa (Sulfonamide AdvReac Confusion Verified 08/15/18 10:19 Antibiotics) Review of Systems ROS Statement: Those systems with pertinent positive or pertinent negative responses have been documented in the HPI. ROS Other: All systems not noted in ROS Statement are negative. Constitutional: Denies: fever, chills Gastrointestinal: Denies: abdominal pain, nausea, vomiting, diarrhea, constipation Genitourinary: Reports: hematuria. Denies: dysuria, frequency, discharge, abnormal menses Musculoskeletal: Denies: back pain Skin: Denies: rash Hematological/Lymphatic: Denies: easy bleeding Past Medical History Past Medical History: No Reported History Additional Past Medical History / Comment(s): fractured bones chi History of Any Multi-Drug Resistant Organisms: None Reported Past Surgical History: No Surgical Hx Reported Past Psychological History: No Psychological Hx Reported Smoking Status: Never smoker Past Alcohol Use History: None Reported Past Drug Use History: None Reported General Exam General appearance: alert, in no apparent distress Head exam: Present: atraumatic, normocephalic Respiratory exam: Present: normal lung sounds bilaterally. Absent: respiratory distress, wheezes, rales, rhonchi, stridor, chest wall tenderness, accessory muscle use Cardiovascular Exam: Present: regular rate, normal rhythm, normal heart sounds. Absent: systolic murmur, diastolic murmur, rubs, gallop GI/Abdominal exam: Present: soft. Absent: distended, tenderness, guarding, rebound, mass, hernia Back exam: Present: normal inspection. Absent: CVA tenderness (R), CVA te nderness (L) Skin exam: Present: warm, dry, intact, normal color, cyanosis. Absent: rash Course Vital Signs 09/22/18 04:29 Temperature 98.4 F Pulse Rate 82 Respiratory 18 Rate Blood Pressure 124/84 O2 Sat by Pulse 99 Oximetry Medical Decision Making - Lab Data Lab Results 09/22/18 09/22/18 Range/Units 05:10 05:10 Urine Color Yellow Urine Appearance Turbid H (Clear) Urine pH 5.5 (5.0-8.0) Ur Specific [place] 1.039 H (1.001-1.035) Urine Protein 1+ H (Negative) Urine Glucose (UA) Negative (Negative) Urine Ketones Negative (Negative) Urine Blood Small H (Negative) Urine Nitrite Negative (Negative) Urine Bilirubin Negative (Negative) Urine Urobilinogen 2.0 (<2.0) mg/dL Ur Leukocyte Esterase Large H (Negative) Urine RBC 9 H (0-5) /hpf Urine WBC 144 H (0-5) /hpf Ur Squamous Epith Cells 48 H (0-4) /hpf Calcium Oxalate Crystal Few H (None) /hpf Urine Bacteria Moderate H (None) /hpf Hyaline Casts 37 H (0-2) /lpf Urine Mucus Many H (None) /hpf Urine HCG, Qual Not Detected (Not Detectd) Disposition Clinical Impression: Urinary tract infection Disposition: HOME SELF-CARE Condition: Fair Instructions (If sedation given, give patient instructions): Urinary Tract Infection in Women (ED) Prescriptions: Nitrofurantoin Monohyd/M-Cryst [Macrobid] 100 mg PO Q12HR #6 cap Is patient prescribed a controlled substance at d/c from ED?: No Referrals: Mitchell Pink DO [Primary Care Provider] - 1-2 days
[2018-09-22 05:41] LABS: Appearance,Urine Turbid (Clear); Bacteria,Urine Moderate /hpf; Bilirubin,Urine Negative (Negative); Blood,Urine Small (Negative); Calcium Oxalate Crystals,Urine Few /hpf; Color,Urine Yellow; Glucose,Urine (UA) Negative (Negative); Hyaline Casts,Urine 37 /lpf (0-2); Ketones,Urine Negative (Negative); Leukocyte Esterase,Urine Large (Negative); Mucus,Urine Many /hpf; Nitrite,Urine Negative (Negative); PH, Urine 5.5 (5.0-8.0); Protein,Urine 1+ (Negative); RBC,Urine 9 /hpf (0-5); Specific Gravity,Urine 1.039 (1.001-1.035); Squamous Epithelial Cell,Urine 48 /hpf (0-4)
[2018-09-22] MEDS ORDERED: NITROFURANTOIN MONOHYD/M-CRYST 100 MG CAP PO STA (06:43)
[2018-09-22 07:06] VITALS: BP 124/82; PULSE 85; RESP 17
== END 2018-09-22 07:06 | disposition home or self-care (01) ==
LOC: EC 04:19
DX: N39.0 Urinary tract infection, site not specified (principal); Z79.3 Long term (current) use of hormonal contraceptives; Z79.899 Other long term (current) drug therapy; Z88.2 Allergy status to sulfonamides
CPT/HCPCS: 81001; 81025; 87086; 99283

== ENCOUNTER 2018-09-29 23:31 | Emergency (ER) | payer BC ==
[2018-09-29 23:36] VITALS: BP 129/86; PULSE 77; RESP 16; TEMP 97.4
[2018-09-29 23:56] LABS: Appearance,Urine Cloudy (Clear); Bacteria,Urine Rare /hpf; Bilirubin,Urine 1+ (Negative); Blood,Urine Negative (Negative); Color,Urine Dark Brown; Glucose,Urine (UA) Negative (Negative); Ketones,Urine Negative (Negative); Leukocyte Esterase,Urine Small (Negative); Mucus,Urine Few /hpf; Nitrite,Urine Positive (Negative); Protein,Urine Trace (Negative); RBC,Urine 3 /hpf (0-5); Specific Gravity,Urine 1.029 (1.001-1.035); Squamous Epithelial Cell,Urine 4 /hpf (0-4); WBC,Urine 15 /hpf (0-5)
[2018-09-30] MEDS ORDERED: CEPHALEXIN 500 MG CAP PO STA (00:21)
[2018-09-30] MEDS ORDERED: CEPHALEXIN 500MG STARTER PACK 4 CAP BTL PO STA (00:21)
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
== END 2018-09-30 01:10 | disposition home or self-care (01) ==
LOC: EC 23:31
DX: N39.0 Urinary tract infection, site not specified (principal); Z88.2 Allergy status to sulfonamides; Z79.3 Long term (current) use of hormonal contraceptives; Z79.899 Other long term (current) drug therapy
CPT/HCPCS: 81001; 81025; 99284

== ENCOUNTER → 2018-10-27 | Outpatient (CLI) | payer SELFPAY ==
--- NOTE | 2018-10-27 08:09 | US ---
EXAMINATION TYPE: US abdomen complete DATE OF EXAM: 10/27/2018 COMPARISON: CT 2018 CLINICAL HISTORY: R10.30 lower abd pain, unspecified. EXAM MEASUREMENTS: Liver Length: 11.3 cm Gallbladder Wall: 0.1 cm CBD: 0.1 cm Spleen: 10.7 cm Right Kidney: 8.2 x 3.4 x 4.2 cm Left Kidney: 8.3 x 3.1 x 4.2 cm Pancreas: wnl Liver: wnl Gallbladder: Cholelithiasis is seen without pericholecystic fluid. Evidence for sonographic Corona's sign: No CBD: wnl Spleen: wnl Right Kidney: wnl Left Kidney: wnl Upper IVC: wnl Abd Aorta: wnl The liver is homogenous. The intrahepatic portion of the IVC and proximal abdominal aorta are within normal limits. Common bile duct is unremarkable. The visualized portions of the pancreas are homoge nous. The spleen is unremarkable. Kidneys are symmetric and free of hydronephrosis. No renal lesio ns are seen. IMPRESSION: Cholelithiasis. No current sonographic evidence of acute cholecystitis.
--- NOTE | 2018-10-27 08:46 | US ---
EXAMINATION TYPE: US pelvis complete transvag DATE OF EXAM: 10/27/2018 COMPARISON: CT 2018 CLINICAL HISTORY: R10.30 lower abd pain, unspecified. Bladder infections, pt is special needs TECHNIQUE: . Transabdominal sonographic images of the pelvis were acquired. Transvaginal sonographi c images were medically necessary to better assess the following anatomy: ovaries Date of LMP: 10/21/2018 EXAM MEASUREMENTS: Uterus: 5.9 x 2.0 x 2.7 cm Endometrial Stripe: 0.4 cm Right Ovary: 1.8 x 1.9 x 2.1 cm Left Ovary: 1.3 x 1.1 x 1.3 cm 1. Uterus: Anteverted wnl 2. Endometrium: wnl 3. Right Ovary: small cyst 1.2 x 1.2 x 0.8 cm 4. Left Ovary: wnl 5. Bilateral Adnexa: wnl 6. Posterior cul-de-sac: wnl IMPRESSION: 1. The urinary bladder seen on transabdominal imaging contains very minimal dependent debris. Correla te with urinalysis. 2. Physiologic 1.2 cm dominant right ovarian follicle.
== END | disposition home or self-care (01) ==
LOC: RADUSWWP 07:17
PROVIDERS: ATTEND Family Medicine
DX: K80.20 Calculus of gallbladder without cholecystitis without obstruction (principal); N32.89 Other specified disorders of bladder
CPT/HCPCS: 76700; 76830; 76856

== ENCOUNTER 2019-05-22 01:25 | Emergency (ER) | payer BC ==
[2019-05-22 01:59] VITALS: BP 102/61; PULSE 66; RESP 16; TEMP 97.8
[2019-05-22 03:50] LABS: Appearance,Urine Turbid (Clear); Bacteria,Urine Few /hpf; Bilirubin,Urine Negative (Negative); Blood,Urine Trace (Negative); Calcium Oxalate Crystals,Urine Occasional /hpf; Color,Urine Yellow; Glucose,Urine (UA) Negative (Negative); Ketones,Urine Trace (Negative); Leukocyte Esterase,Urine Large (Negative); Mucus,Urine Many /hpf; Nitrite,Urine Negative (Negative); Protein,Urine 1+ (Negative); RBC,Urine 25 /hpf (0-5); Specific Gravity,Urine 1.038 (1.001-1.035); Squamous Epithelial Cell,Urine 30 /hpf (0-4); WBC,Urine 57 /hpf (0-5)
[2019-05-22] MEDS ORDERED: metroNIDAZOLE 250 MG TABLET PO ONE (04:09)
[2019-05-22] MEDS ORDERED: NITROFURANTOIN MONOHYD/M-CRYST 100 MG CAP PO STA (04:09)
[2019-05-22] MEDS ORDERED: CEPHALEXIN 500MG STARTER PACK 4 CAP BTL PO STA (04:10)
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
[2019-05-24 11:37] LABS: Chlamydia trachomatis rRNA Not detected (Not detected); Neisseria gonorrhoeae rRNA Not detected (Not detected)
== END 2019-05-22 04:31 | disposition home or self-care (01) ==
LOC: EC 01:25
DX: N76.0 Acute vaginitis (principal); N39.0 Urinary tract infection, site not specified; F41.9 Anxiety disorder, unspecified; F32.9 Major depressive disorder, single episode, unspecified; Z79.899 Other long term (current) drug therapy; Z79.3 Long term (current) use of hormonal contraceptives; Z88.2 Allergy status to sulfonamides
CPT/HCPCS: 81001; 81025; 87070; 87086; 87491; 87591; 87808; 99283

== ENCOUNTER 2020-03-22 22:48 | Emergency (ER) | payer BC ==
[2020-03-22 23:00] VITALS: BP 135/100; PULSE 110; RESP 18; TEMP 97.6
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
[2020-03-22 23:55] LABS: Cocaine Screen,Urine Not Detected (NotDetected); Phencyclidine Screen,Urine Not Detected (NotDetected); Urn Cannabinoid Scrn Not Detected (NotDetected)
[2020-03-22 23:56] LABS: Amphetamine Screen,Urine Not Detected (NotDetected); Barbiturate Screen,Urine Not Detected (NotDetected); Benzodiazepines Screen,Urine Not Detected (NotDetected); Methadone Screen, Urine Not Detected (NotDetected); Opiate Screen,Urine Not Detected (NotDetected); Oxycodone Screen, Urine Not Detected (NotDetected); Tricyclic Antidepressant,Urine Not Detected (NotDetected)
[2020-03-23 00:18] LABS: Appearance,Urine Cloudy (Clear); Bacteria,Urine Moderate /hpf; Bilirubin,Urine Negative (Negative); Blood,Urine Small (Negative); Color,Urine Yellow; Glucose,Urine (UA) Negative (Negative); Hyaline Casts,Urine 3 /lpf (0-2); Ketones,Urine Negative (Negative); Leukocyte Esterase,Urine Large (Negative); Mucus,Urine Moderate /hpf; Nitrite,Urine Positive (Negative); Protein,Urine 1+ (Negative); RBC,Urine 10 /hpf (0-5); Specific Gravity,Urine 1.019 (1.001-1.035); Squamous Epithelial Cell,Urine 3 /hpf (0-4); Urobilinogen,Urine <2.0 mg/dL (<2.0); WBC,Urine >182 /hpf (0-5)
== END 2020-03-23 01:15 | disposition home or self-care (01) ==
LOC: EC 22:48 → EEVIPCON 22:48 → EC 03-23 01:15
DX: F41.9 Anxiety disorder, unspecified (principal); F43.20 Adjustment disorder, unspecified; F32.9 Major depressive disorder, single episode, unspecified; F17.200 Nicotine dependence, unspecified, uncomplicated; Z79.899 Other long term (current) drug therapy; Z79.3 Long term (current) use of hormonal contraceptives; Z88.2 Allergy status to sulfonamides
CPT/HCPCS: 80306; 81001; 82075; 99285

== ENCOUNTER → 2020-03-30 | Outpatient (CLI) | payer BC ==
--- NOTE | 2020-03-30 13:38 | US ---
EXAMINATION TYPE: US kidneys/renal and bladder DATE OF EXAM: 03/30/2020 COMPARISON: CT June 02, 2017 CLINICAL HISTORY: R31.9 Hematuria. Microscopic hematuria EXAM MEASUREMENTS: Right Kidney: 8.2 x 3.9 x 3.7 cm Left Kidney: 8.4 x 5.1 x 4.3 cm Right Kidney: No evidence of hydro, small in size, Left Kidney: Small in size, No evidence of hydro, upper and lower poles gassed out Bladder: wnl Bilateral Jets seen: No There is no evidence for hydronephrosis at this point in time. No nephrolithiasis is seen. No esa s are identified. The urinary bladder is not greatly distended. Bilateral ureteral jets are seen. IMPRESSION: Suboptimal evaluation of left kidney. No hydronephrosis noted bilaterally. Source of marie turia not identified. If symptoms persist further investigation with repeat multiphasic contrast-enha nced CT would be warranted.
== END | disposition home or self-care (01) ==
LOC: RADUSWWP 12:50
PROVIDERS: ATTEND Urology
DX: R31.9 Hematuria, unspecified (principal)
CPT/HCPCS: 76770

== ENCOUNTER 2020-05-12 21:50 | Emergency (ER) | payer BC ==
[2020-05-12 22:02] VITALS: BP 105/73; PULSE 85; RESP 20; TEMP 98.3
[2020-05-12 23:43] LABS: Amorphous Sediment,Urine Rare /hpf; Appearance,Urine Turbid (Clear); Bacteria,Urine Many /hpf; Bilirubin,Urine Negative (Negative); Blood,Urine Small (Negative); Calcium Oxalate Crystals,Urine Occasional /hpf; Color,Urine Yellow; Glucose,Urine (UA) Negative (Negative); Hyaline Casts,Urine 19 /lpf (0-2); Ketones,Urine Trace (Negative); Leukocyte Esterase,Urine Large (Negative); Mucus,Urine Many /hpf; Nitrite,Urine Negative (Negative); PH, Urine 5.5 (5.0-8.0); Protein,Urine 1+ (Negative); RBC,Urine 20 /hpf (0-5); Specific Gravity,Urine 1.025 (1.001-1.035); Squamous Epithelial Cell,Urine 18 /hpf (0-4); Urobilinogen,Urine <2.0 mg/dL (<2.0); WBC,Urine >182 /hpf (0-5)
[2020-05-12] MEDS ORDERED: AMOXIC-POT CLAV 875-125MG 1 EACH TAB PO STA (23:52)
[2020-05-12] MEDS ORDERED: AMOXIC-POT CLAV 875MG STARTER PACK 2 TAB BTL PO STA (23:52)
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
== END 2020-05-13 00:26 | disposition home or self-care (01) ==
LOC: EC 21:50
DX: K04.7 Periapical abscess without sinus (principal); K02.9 Dental caries, unspecified; N39.0 Urinary tract infection, site not specified
CPT/HCPCS: 81001; 81025; 87086; 99283

== ENCOUNTER 2023-03-02 20:35 | Emergency (ER) | payer BC ==
[2023-03-02 21:06] VITALS: RESP 18; TEMP 98.4
[2023-03-02 21:28] LABS: Appearance,Urine Cloudy (Clear); Bacteria,Urine Many /hpf; Bilirubin,Urine Negative (Negative); Blood,Urine Negative (Negative); Color,Urine Yellow; Glucose,Urine (UA) Negative (Negative); Ketones,Urine Negative (Negative); Leukocyte Esterase,Urine Large (Negative); Mucus,Urine Many /hpf; Nitrite,Urine Negative (Negative); PH, Urine 6.5 (5.0-8.0); Protein,Urine Trace (Negative); RBC,Urine 8 /hpf (0-5); Specific Gravity,Urine 1.026 (1.001-1.035); Squamous Epithelial Cell,Urine 3 /hpf (0-4); Urobilinogen,Urine <2.0 mg/dL (<2.0); WBC,Urine 34 /hpf (0-5)
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
[2023-03-02] MEDS ORDERED: ONDANSETRON 4 MG ODT STARTER PACK 2 TAB BTL PO STA (22:02)
[2023-03-02 22:43] VITALS: BP 119/81; PULSE 83
== END 2023-03-02 22:58 | disposition home or self-care (01) ==
LOC: EC 20:35
DX: R11.0 Nausea (principal); F41.9 Anxiety disorder, unspecified; F32.A Depression, unspecified; Z79.899 Other long term (current) drug therapy; Z88.2 Allergy status to sulfonamides
CPT/HCPCS: 81001; 81025; 87086; 99284; S0119

== ENCOUNTER 2023-05-09 18:27 | Emergency (ER) | payer BC ==
[2023-05-09 18:42] VITALS: TEMP 98.5
[2023-05-09] MEDS: predniSONE 20 MG TAB PO STA (19:20)
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
[2023-05-09] MEDS: IPRATROPIUM-ALBUTEROL 3 ML NEB INHALATION STA (19:43)
--- NOTE | 2023-05-09 20:27 | XR ---
EXAMINATION TYPE: XR chest 2V DATE OF EXAM: 05/09/2023 8:06 PM CLINICAL INDICATION:Female, 33 years old with history of cough; COMPARISON: Chest radiographs from 07/28/2018 TECHNIQUE: XR chest 2V Frontal and lateral views of the chest. FINDINGS: Lungs/Pleura: There is no evidence of pleural effusion, focal consolidation, or pneumothorax. Pulmonary vascularity: Unremarkable. Heart/mediastinum: Cardiomediastinal silhouette is unremarkable. Musculoskeletal: No acute osseous pathology. IMPRESSION: No acute cardiopulmonary disease/process.
[2023-05-09] MEDS: AZITHROMYCIN 500 MG TAB PO STA (20:55)
[2023-05-09 21:02] VITALS: BP 112/71; PULSE 105; RESP 16
== END 2023-05-09 20:59 | disposition home or self-care (01) ==
LOC: EC 18:27
DX: J45.20 Mild intermittent asthma, uncomplicated (principal); F32.A Depression, unspecified; F41.9 Anxiety disorder, unspecified; Z20.822 Contact with and (suspected) exposure to COVID-19; Z79.899 Other long term (current) drug therapy; Z88.2 Allergy status to sulfonamides
CPT/HCPCS: 94640; 93005; 87636; 71046; 99285; J7512

== ENCOUNTER 2023-07-10 13:12 | Emergency (ER) | payer BC ==
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
[2023-07-10 14:14] VITALS: BP 120/83; PULSE 88; RESP 18; TEMP 97.9
== END 2023-07-10 14:52 | disposition home or self-care (01) ==
LOC: EC 13:12
DX: J02.9 Acute pharyngitis, unspecified (principal); Z88.2 Allergy status to sulfonamides
CPT/HCPCS: 87636; 87651; 99283